=== PATIENT | female | born 1960 | race Caucasian/White ===

== ENCOUNTER 2018-12-16 13:02 | Outpatient (CLI) | payer OTHER, SELFPAY ==
[2018-12-16] VITALS (9 sets, daily range): BP systolic 141–184; BP diastolic 75–95; PULSE 56–67; RESP 16–18; TEMP 36.9; O2SAT 95–100
--- NOTE | 2018-12-16 13:04 | DI.RAD.S_ITS ---
PROCEDURE: PAIN SI JOINT INJECTION INDICATIONS: INTERVERTEBRAL DISC DISPLACEMENT FINDINGS: Fluoroscopic spot filming was performed to verify placement of spinal needles at the right inferior sacroiliac joint level(s), as labeled on the films. Appropriate location(s) of the needle tip(s) was confirmed by injection of iodinated contrast. IMPRESSION: Successful needle tip localization at the right inferior sacroiliac joint for steroid injection. Dictated by: Jong Howe M.D. on 12/16/2018 at 14:47 Approved by: Jong Howe M.D. on 12/16/2018 at 14:48
[2018-12-16] MEDS: MIDAZOLAM 5 MG/5 ML VIAL IV (14:13)
[2018-12-16] MEDS: IOPAMIDOL 15 ML VIAL 3 ML INJ (14:20)
[2018-12-16] MEDS: BUPIVACAINE 0.5% (PF) VIAL 2 ML INJ (14:20)
[2018-12-16] MEDS: BETAMETHASONE 30 MG/5 ML MDV 12 MG INJ (14:21)
--- NOTE | 2018-12-16 14:22 | PC.NURSE ---
ASSISTING PT OFF TABLE AND TRANSPORTING TO POST PROC AREA IN STABLE CONDITION
--- NOTE | 2018-12-16 14:26 | P.PCN_ITS ---
Procedures Date/Time Date of procedure: 12/16/18 Time of procedure: 14:24 General Procedure description: PREOP Dx: Sacroiliac joint pain/DJD POST OP DX: Sacroiliac Joint Pain/DJD Procedures: Fluoroscopic guided contrast controlled right sacroiliac joint injection Physician: Jaime Soler D.O. Indications: Eileen is referred by for treatment of right sacroiliac joint DJD Description of procedure Fluoroscopic guided, contrast controlled right sacroiliac joint injection Following denial of allergies and review of potential side effects and complications, including, but not necessarily limited to, infection, allergic reaction, local tissue breakdown, temporary as well as permanent nerve injury, paralysis, stroke and possible , the patient indicated that they understood and agreed to proceed. An informed consent was signed by the patient , witnessed by a nurse, and placed in the patient's chart. Additionally, other treatment options including modalities, medications, and physical therapy were reviewed with the patient. After review of previous anaesthesic history and IV conscious sedation the patient was deemed safe to proceed with todays procedure with IV conscious sedation as ASA class II designation. Safety time-out was performed to confirm patient ID, procedure to be performed and site of procedure. IV sedation was accomplished with a combination of 3mg of Versed was administered by the RN after DO order, titrated to patient comfort during the course of the procedure while the patient remained responsive to all verbal commands In the prone position following sterile prep and drape of the pelvic region, the hyper lucency on in the inferior aspect of the sacroiliac joint was identified fluoroscopically the skin was anesthetized be a 25 gauge 1 eventual with approximately 2 cc of 1% lidocaine solution. At this point, a 22 gauge 3 in spinal needle was atraumatically introduced and advanced under fluoroscopic guidance into the inferior aspect of the right sacroiliac joint. Following negative aspiration, approximately 0.3 cc of Isovue-300 was injected confirming intra-articular placement without vascular uptake. Radiographic data, including multiple fluoroscopic views of the pelvis, reveals a spinal needle in the sacroiliac joint hyper lucent zone. Subsequent view show flow contrast tear superiorly and inferiorly within the joint capsule without vascular intrathecal uptake. At this point a total of 1cc or 0 8 of 0.5% Marcaine was combined with 1cc of 6 mg of betamethasone was injected without incident. The procedure tolerated the procedure well without signs or symptoms of complications prior to transfer to the recovery area continued monitoring without incident. The patient was then transferred to the recovery area with a bur observed for an appropriate time after the injection. The patient reverted a vas score of 7 prior to the procedure and postprocedure vas of 1. Total fluoroscopy time: 22.7 sec Total conscious sedation time: 24 min Postop instructions The patient was provided with a pain like to continue to record the patient's response to the target specific procedure prior to the patient's follow-up visit with the referring physician. Additionally, specific post injection care instructions and a contact number to our office were provided if concerns arise regarding the possible complications associated with procedure are suspected. Jaime Soler D.O. Complications: none
--- NOTE | 2018-12-16 14:39 | PC.NURSE ---
pt returned from procedure via wheelchair alert and awake, able to move from w/c to chair with standby assist. Resumed monitoring from Lilly CARDONA.
== END 2018-12-16 14:54 ==
PROVIDERS: PCP Internal Medicine; Visit Provider Physical Medicine & Rehabilitation
DX: M53.3 Sacrococcygeal disorders, not elsewhere classified (principal); M51.26 Other intervertebral disc displacement, lumbar region; M48.061 Spinal stenosis, lumbar region without neurogenic claudication; M16.11 Unilateral primary osteoarthritis, right hip; M99.83 Other biomechanical lesions of lumbar region
CPT/HCPCS: 27096; 99152; J0702; J2250

== ENCOUNTER 2019-01-06 21:30 | Emergency (ER) | payer OTHER, SELFPAY ==
[2019-01-06 21:57] VITALS: BP 169/79; PULSE 62; RESP 15; TEMP 36.6; O2SAT 94; BMI 26.5
--- NOTE | 2019-01-06 23:22 | DI.RAD.S_ITS ---
PROCEDURE: XR LUMBAR SPINE 2-3V INDICATIONS: fall pain TECHNIQUE: 3 views of the lumbar spine were acquired. COMPARISON: None. FINDINGS: Bones: No fracture or focal osseous destruction. Trace retrolisthesis of L2 on L3. Diffuse facet arthropathy. Endplate sclerosis and spurring. Moderate narrowing of all the lumbar disc spaces uniformly. Mild dextrocurvature centered at L1 although not entirely visualized. Soft tissues: Overlying bowel gas pattern is normal. No suspicious soft tissue calcifications. IMPRESSION: No fracture. Chronic degenerative changes as above. Dictated by: Kee Peguero M.D. on 01/07/2019 at 7:58 Approved by: Kee Peguero M.D. on 01/07/2019 at 7:59
--- NOTE | 2019-01-06 23:27 | ED.FALL ---
HPI - Fall General Chief Complaint: Fall Stated Complaint: fall, slipped on ice at work Time Seen by Provider: 01/06/19 23:22 Source: patient Mode of arrival: ambulatory Limitations: no limitations History of Present Illness HPI Narrative: Patient is a 58-year-old female who presents with acute back pain after slipping and falling in a parking. She has been able to complete her shift today at work but continues to have some pain. She does have some chronic back pain and has had injections in her SI joint before. She has no numbness or tingling. No head injury MD complaint: fall Onset (ago): hour(s) Fall from: standing Place fall occurred: work Loss of consciousness: none Related Data Home Medications Medication Instructions Recorded Confirmed methocarbamol 750 mg tablet 750 mg PO QID 07/17/18 11/27/18 Previous Rx's Medication Instructions Recorded fexofenadine 180 mg PO QDAYP PRN #90 tab 06/12/17 fluticasone 2 spray INTRANASAL HS #1 inh 11/10/17 ranitidine HCl [Zantac] 150 mg PO BID #60 tab 09/22/18 citalopram 40 mg PO QDAY #180 tab 10/01/18 tramadol 50 mg tablet 50 mg PO TID PRN #60 tab 11/13/18 hydrocodone 5 mg-acetaminophen 300 1 tab PO Q6H PRN #30 tab 11/27/18 mg tablet Allergies Allergy/AdvReac Type Severity Reaction Status Date / Time OSEI Inhibitors Allergy Mild COUGH Verified 01/06/19 21:57 [OSEI INHIBITORS] bacitracin Allergy Unknown Redness of Verified 01/06/19 21:57 [From NEOSPORIN Skin ([id number])] neomycin Allergy Unknown Redness of Verified 01/06/19 21:57 [From NEOSPORIN Skin ([id number])] polymyxin B Allergy Unknown Redness of Verified 01/06/19 21:57 [From NEOSPORIN Skin ([id number])] Calcium Channel Blocking AdvReac Unknown edema Verified 01/06/19 21:57 Agents-Dih [CALCIUM CHANNEL BLOCKING AGENTS-DIH] ANGIOTENSIN II RECEPTOR ANTAG AdvReac Mild MANY Uncoded 12/16/18 13:48 hctz AdvReac Unknown very low Uncoded 12/16/18 13:48 potassium Review of Systems Review of Systems GENERAL: Denies chills,fever HEENT: Denies throat pain RESPIRATORY: Denies dyspnea, cough, wheezing CARDIOVASCULAR: Denies chest pain, palpitations GASTROINTESTINAL: Denies nausea, vomiting MUSCULOSKELETAL: Denies extremity pain, injury SKIN: No rash, no laceration, no pruritus NEUROLOGIC: Denies weakness, dizziness, headache, numbness 8 point review of systems is negative except for those stated above and HPI Exam Initial Vital Signs Initial Vital Signs: Vital Signs Temperature 97.8 F 01/06/19 21:57 Pulse Rate 62 01/06/19 21:57 Respiratory Rate 15 01/06/19 21:57 Blood Pressure 169/79 H 01/06/19 21:57 Pulse Oximetry 94 01/06/19 21:57 GENERAL: alert cooperative well-appearing woman ambulatory in the ED HEENT: Head atraumatic,EOMI, neck is supple CARDIOVASCULAR: Regular rate and rhythm without murmurs, rubs or gallops. RESPIRATORY: Breath sounds equal bilaterally, no wheezes rales or rhonchi. BACK: lumbar of midline tenderness L3-L4, no sign of trauma. no sacral pain EXTREMITIES: Normal range of motion, no clubbing or edema. Neurovascularly intact NEUROLOGICAL: Alert and oriented x4.Normal gait and speech. SKIN: Warm, dry, no laceration, no petechiae, no rashes or lesions. [facility] Social History marital status: unmarried,living together number of children: 0 household members: significant other lives independently: Yes caregiver/support person: No housing: house pets and animals: No education level: other (Associates degree) occupational status: employed (RN) current occupational exposures/hazards: Yes camille/moravian: Zoroastrian leisure activities: sports (Football, Baseball), exercise (Walking, Biking) and other (Outdoor activities, jewelry making) Smoking Status: Former smoker Tobacco: How many years used: 20 Smokeless tobacco user: other (Cigarettes) quit status: quit date established (~2482-6261) second hand exposure: Yes (With partner a few years back.) alcohol intake: current (twice a week.) substance use type: does not use Course Orders Ordered: ED Orders 01/06/19 23:22 XR lumbar spine 2-3V Stat Vital Signs - 8 hr 01/06/19 21:57 01/06/19 23:50 Temperature 97.8 F Pulse Rate 62 76 Respiratory Rate 15 18 Blood Pressure 169/79 H 170/72 H Pulse Oximetry 94 MDM - Fall Imaging Data lumbar x-ray:: Attestation: I personally reviewed and interpreted this imaging study as follows: My impression: No acute fracture MDM Narrative Medical decision making narrative: patient took Motrin about 3:30 p.m.. She is offered Flexeril to help with muscle spasm. She says that she does not respond well to Flexeril. She has some leftover methocarbamol which she says she does better with. Discharge Plan Departure Patient Disposition: Home Clinical Impression: Acute low back pain Qualifiers: Back pain laterality: midline Sciatica presence: without sciatica Qualified Code(s): M54.5 - Low back pain Discharge Date/Time: 01/06/19 23:51 Interventions: ED Discharge Assessment Last Done: 01/06/19 23:50 Instructions: DI for Low Back Pain Activity Restrictions/Additional Instructions: *You have been diagnosed with acute low back pain *What to do: at this time x-ray is negative. If still having pain is in 7-10 days may require repeat x-ray or possibly MRI. Recommend small amount of movement and stretching. *Continue to take medications as directed Motrin 800 mg every 8 hr if needed for pain *Follow up with your primary care provider in 2-3 days *Return to ER if you should have increase, numbness or tingling, worsening pain, lower extremity weakness or any new, worsening or concerning symptoms Prescriptions: No Action fexofenadine 180 MG tablet 180 mg PO QDAYP PRNQty: 90 RF: 3 fluticasone 16 GM spray,suspension 2 spray Intranasal HS Qty: 1 RF: 3 ranitidine HCl [Zantac] 150 mg tablet 150 mg PO BID Qty: 60 RF: 3 citalopram 20 mg tablet 40 mg PO QDAY Qty: 180 RF: 3 tramadol 50 mg tablet 50 mg PO TID PRN (Reason: pain) Qty: 60 RF: 1 methocarbamol 750 mg tablet 750 mg PO QID RF: 0 hydrocodone-acetaminophen [Vicodin] 5-300 mg tablet 1 tab PO Q6H PRN (Reason: pain) Qty: 30 RF: 0 Referrals: Salvador Schmidt MD [Primary Care Provider] -
--- NOTE | 2019-01-06 23:45 | ED_ITS ---
HPI - Fall General Chief Complaint: Fall Stated Complaint: fall, slipped on ice at work Time Seen by Provider: 01/06/19 23:22 Source: patient Mode of arrival: ambulatory Limitations: no limitations History of Present Illness HPI Narrative: Patient is a 58-year-old female who presents with acute back pain after slipping and falling in a parking. She has been able to complete her shift today at work but continues to have some pain. She does have some chronic back pain and has had injections in her SI joint before. She has no numbness or tingling. No head injury MD complaint: fall Onset (ago): hour(s) Fall from: standing Place fall occurred: work Loss of consciousness: none Related Data Home Medications Medication Instructions Recorded Confirmed methocarbamol 750 mg tablet 750 mg PO QID 07/17/18 11/27/18 Previous Rx's Medication Instructions Recorded fexofenadine 180 mg PO QDAYP PRN #90 tab 06/12/17 fluticasone 2 spray INTRANASAL HS #1 inh 11/10/17 ranitidine HCl [Zantac] 150 mg PO BID #60 tab 09/22/18 citalopram 40 mg PO QDAY #180 tab 10/01/18 tramadol 50 mg tablet 50 mg PO TID PRN #60 tab 11/13/18 hydrocodone 5 mg-acetaminophen 300 1 tab PO Q6H PRN #30 tab 11/27/18 mg tablet Allergies Allergy/AdvReac Type Severity Reaction Status Date / Time OSEI Inhibitors Allergy Mild COUGH Verified 01/06/19 21:57 [OSEI INHIBITORS] bacitracin Allergy Unknown Redness of Verified 01/06/19 21:57 [From NEOSPORIN Skin ([id number])] neomycin Allergy Unknown Redness of Verified 01/06/19 21:57 [From NEOSPORIN Skin ([id number])] polymyxin B Allergy Unknown Redness of Verified 01/06/19 21:57 [From NEOSPORIN Skin ([id number])] Calcium Channel Blocking AdvReac Unknown edema Verified 01/06/19 21:57 Agents-Dih [CALCIUM CHANNEL BLOCKING AGENTS-DIH] ANGIOTENSIN II RECEPTOR ANTAG AdvReac Mild MANY Uncoded 12/16/18 13:48 hctz AdvReac Unknown very low Uncoded 12/16/18 13:48 potassium Review of Systems Review of Systems GENERAL: Denies chills,fever HEENT: Denies throat pain RESPIRATORY: Denies dyspnea, cough, wheezing CARDIOVASCULAR: Denies chest pain, palpitations GASTROINTESTINAL: Denies nausea, vomiting MUSCULOSKELETAL: Denies extremity pain, injury SKIN: No rash, no laceration, no pruritus NEUROLOGIC: Denies weakness, dizziness, headache, numbness 8 point review of systems is negative except for those stated above and HPI Exam Initial Vital Signs Initial Vital Signs: Vital Signs Temperature 97.8 F 01/06/19 21:57 Pulse Rate 62 01/06/19 21:57 Respiratory Rate 15 01/06/19 21:57 Blood Pressure 169/79 H 01/06/19 21:57 Pulse Oximetry 94 01/06/19 21:57 GENERAL: alert cooperative well-appearing woman ambulatory in the ED HEENT: Head atraumatic,EOMI, neck is supple CARDIOVASCULAR: Regular rate and rhythm without murmurs, rubs or gallops. RESPIRATORY: Breath sounds equal bilaterally, no wheezes rales or rhonchi. BACK: lumbar of midline tenderness L3-L4, no sign of trauma. no sacral pain EXTREMITIES: Normal range of motion, no clubbing or edema. Neurovascularly intact NEUROLOGICAL: Alert and oriented x4.Normal gait and speech. SKIN: Warm, dry, no laceration, no petechiae, no rashes or lesions. [facility] Social History marital status: unmarried,living together number of children: 0 household members: significant other lives independently: Yes caregiver/support person: No housing: house pets and animals: No education level: other (Associates degree) occupational status: employed (RN) current occupational exposures/hazards: Yes camille/taoism: Orthodox leisure activities: sports (Football, Baseball), exercise (Walking, Biking) and other (Outdoor activities, jewelry making) Smoking Status: Former smoker Tobacco: How many years used: 20 Smokeless tobacco user: other (Cigarettes) quit status: quit date established (~[id number]) second hand exposure: Yes (With partner a few years back.) alcohol intake: current (twice a week.) substance use type: does not use Course Orders Ordered: ED Orders 01/06/19 23:22 XR lumbar spine 2-3V Stat Vital Signs - 8 hr 01/06/19 21:57 01/06/19 23:50 Temperature 97.8 F Pulse Rate 62 76 Respiratory Rate 15 18 Blood Pressure 169/79 H 170/72 H Pulse Oximetry 94 MDM - Fall Imaging Data lumbar x-ray:: Attestation: I personally reviewed and interpreted this imaging study as follows: My impression: No acute fracture MDM Narrative Medical decision making narrative: patient took Motrin about 3:30 p.m.. She is offered Flexeril to help with muscle spasm. She says that she does not respond well to Flexeril. She has some leftover methocarbamol which she says she does better with. Discharge Plan Departure Patient Disposition: Home Clinical Impression: Acute low back pain Qualifiers: Back pain laterality: midline Sciatica presence: without sciatica Qualified Co de(s): M54.5 - Low back pain Discharge Date/Time: 01/06/19 23:51 Interventions: ED Discharge Assessment Last Done: 01/06/19 23:50 Instructions: DI for Low Back Pain Activity Restrictions/Additional Instructions: *You have been diagnosed with acute low back pain *What to do: at this time x-ray is negative. If still having pain is in 7-10 days may require repeat x-ray or possibly MRI. Recommend small amount of movement and stretching. *Continue to take medications as directed Motrin 800 mg every 8 hr if needed for pain *Follow up with your primary care provider in 2-3 days *Return to ER if you should have increase, numbness or tingling, worsening pain, lower extremity weakness or any new, worsening or concerning symptoms Prescriptions: No Action fexofenadine 180 MG tablet 180 mg PO QDAYP PRNQty: 90 RF: 3 fluticasone 16 GM spray,suspension 2 spray Intranasal HS Qty: 1 RF: 3 ranitidine HCl [Zantac] 150 mg tablet 150 mg PO BID Qty: 60 RF: 3 citalopram 20 mg tablet 40 mg PO QDAY Qty: 180 RF: 3 tramadol 50 mg tablet 50 mg PO TID PRN (Reason: pain) Qty: 60 RF: 1 methocarbamol 750 mg tablet 750 mg PO QID RF: 0 hydrocodone-acetaminophen [Vicodin] 5-300 mg tablet 1 tab PO Q6H PRN (Reason: pain) Qty: 30 RF: 0 Referrals: Salvador Schmidt MD [Primary Care Provider] -
[2019-01-06 23:50] VITALS: BP 170/72; PULSE 76; RESP 18
== END 2019-01-06 23:51 | disposition home or self-care (01) ==
PROVIDERS: Emergency Provider Emergency Medicine; PCP Internal Medicine
DX: M54.5 Low back pain (principal); W01.0XXA Fall on same level from slipping, tripping and stumbling without subsequent striking against object, initial encounter; Y99.0 Civilian activity done for income or pay
CPT/HCPCS: 72100; 99282; 99283

== ENCOUNTER → 2019-05-24 11:46 | Outpatient (CLI) | payer OTHER, SELFPAY ==
--- NOTE | 2019-05-24 11:48 | DI.RAD.S_ITS ---
PROCEDURE: XR HIP W PEL IF DONE LT MIN 4V INDICATIONS: right hip pain TECHNIQUE: AP pelvis with lateral view(s) of the left and right hip(s). COMPARISON: [facility], CR, XR LUMBAR SPINE WITH OBLIQUES, 10/23/2017, 7:59. FINDINGS: Bones: No fractures or dislocations. Pelvic ring appears intact. No suspicious bony lesions. Severe right hip joint degeneration. Moderate left hip osteoarthritis. Lower lumbar spondylosis. Soft tissues: The visualized bowel gas pattern is normal. No suspicious soft tissue calcifications. IMPRESSION: Severe right and moderate left hip joint degeneration, progressed since 10/23/17. Dictated by: Kee Peguero M.D. on 05/24/2019 at 13:24 Approved by: Kee Peguero M.D. on 05/24/2019 at 16:33
== END ==
PROVIDERS: PCP Internal Medicine; Visit Provider Registered Nurse
DX: M16.0 Bilateral primary osteoarthritis of hip (principal)
CPT/HCPCS: 73522

== ENCOUNTER → 2019-07-22 13:16 | Outpatient (CLI) | payer OTHER, SELFPAY ==
--- NOTE | 2019-07-22 13:19 | DI.MRI.S_ITS ---
PROCEDURE: MR LUMBAR SPINE WO CON INDICATIONS: Lower back pain TECHNIQUE: Noncontrast sagittal T1 spin echo and T2 fast echo, sagittal STIR, axial T1 and T2 fast spin echo through the lumbar spine. In cases with scoliosis, additional coronal T2 fast spin echo may be performed. COMPARISON: [facility], MR, MR LUMBAR SPINE WITHOUT CONTRAST, 10/28/2017, 9:38. [facility], CR, XR LUMBAR SPINE 2-3V, 01/06/2019, 23:25. FINDINGS: Image quality: Excellent. Alignment and Curvature: There is trace retrolisthesis of L1 on L2, L2 on L3, L3 on L4, L4 on L5. Bone Marrow: Marrow is of normal overall signal. Moderate ventral changes are present at L2-3, L4-5 and minimal throughout the remainder of the lumbar spine. Schmorl's node with minimal reactive endplate changes and one in the inferior endplate of L2 superior endplate of L3. No acute vertebral body compression fractures. Spinal Cord: Conus medullaris terminates at the L1-L2 level. Visualized cord demonstrates normal signal and size. Paraspinous Soft Tissues: No paravertebral masses. Discs: Moderate desiccation is present throughout the lumbar spine. L1-L2: Minimal disc bulge without spinal stenosis or foraminal narrowing. No interval change. Facet and ligamentum flavum hypertrophy are present. L2-L3: Mild disc bulge with mild spinal stenosis. Mild to moderate bilateral foraminal narrowing with facet and ligamentum flavum hypertrophy. No interval change. L3-L4: Mild disc bulge with mild spinal stenosis. Moderate to severe left and moderate right foraminal narrowing, minimally progressive compared to prior exam. Facet and ligamentum flavum hypertrophy are present. L4-L5: Mild disc bulge including a right lateral/foraminal component was likely compromise of the right lateral recess. There is severe right and mild left foraminal narrowing with facet and ligamentum flavum hypertrophy. No interval change. Mild to moderate spinal stenosis. L5-S1: Mild disc bulge with slight left foraminal component. No spinal stenosis. Mild bilateral foraminal narrowing with facet and ligament flavum hypertrophy. No interval change. IMPRESSION: 1. Multilevel degenerative changes with air is interval progression as above. 2. Multilevel spinal stenosis most notable secondary to disc bulge with contributing factor of facet/ligament flavum arthropathy. 3. Multilevel foraminal narrowing most severe at L4-5 secondary to facet arthropathy. Dictated by: Noelle Neumann M.D. on 07/22/2019 at 18:04 Approved by: Noelle Neumann M.D. on 07/22/2019 at 18:10
== END ==
PROVIDERS: PCP Internal Medicine; Visit Provider Registered Nurse
DX: M99.83 Other biomechanical lesions of lumbar region (principal); M51.26 Other intervertebral disc displacement, lumbar region
CPT/HCPCS: 72148

== ENCOUNTER 2019-08-03 14:00 | Outpatient (CLI) | payer OTHER, SELFPAY ==
--- NOTE | 2019-08-03 14:03 | DI.RAD.S_ITS ---
PROCEDURE: PAIN L/S TRANSFORAMINAL INJECT INDICATIONS: SPINAL STENOSIS FINDINGS: Fluoroscopic spot filming was performed to verify placement of spinal needles at the L4-L5 level(s), as labeled on the films. Appropriate location(s) of the needle tip(s) was confirmed by injection of iodinated contrast. Dictated by: Kee Peguero M.D. on 08/03/2019 at 16:52 Approved by: Kee Peguero M.D. on 08/03/2019 at 16:52
[2019-08-03 14:07] VITALS: BP 157/84; PULSE 69; RESP 16; TEMP 36.5; O2SAT 98
[2019-08-03 15:06] VITALS: BP 182/75; PULSE 58; RESP 16; O2SAT 98
[2019-08-03] MEDS: MIDAZOLAM 5 MG/5 ML VIAL IV (15:08)
[2019-08-03] MEDS: fentaNYL 100 MCG/2 ML INJ 50 MCG IV (15:08)
[2019-08-03 15:11] VITALS: BP 143/72; PULSE 57; RESP 16; O2SAT 96
[2019-08-03] MEDS: BETAMETHASONE 30 MG/5 ML MDV 6 MG INJ (15:14)
[2019-08-03] MEDS: IOPAMIDOL 15 ML VIAL 3 ML INJ (15:14)
[2019-08-03] MEDS: DEXAMETHASONE 10 MG/ML VIAL 20 MG INJ (15:14)
[2019-08-03] MEDS: BUPIVACAINE 0.25% (PF) VIAL 2 ML INJ (15:14)
[2019-08-03 15:16] VITALS: BP 148/72; PULSE 54; RESP 16; O2SAT 96
--- NOTE | 2019-08-03 15:19 | PC.NURSE ---
ASSISTING PT OFF TABLE AND TRANSPORTING TO POST PROC AREA IN STABLE CONDITION. TURNING PT CARE OVER TO DULCE SHINE.
--- NOTE | 2019-08-03 15:27 | P.PCN_ITS ---
Procedures Date/Time Date of procedure: 08/03/19 Time of procedure: 15:27 General Procedure description: PREOP DIAGNOSIS 1. FORMAINAL STENOSIS WITH LE SYMPTOMS POST OP DIAGNOSIS 1. FORMAINAL STENOSIS WITH LE SYMPTOMS PROCEDURES 1. FLUOROSCOPICALLY GUIDED CONTRAST CONTROLLED TRANSFORAMINAL EPIDURAL STEROID INJECTION - RIGHT L4/5 TFESI PHYSICIAN: Jaime Soler DO INDICATIONS: Eileen is referred by Dr. Schmidt for treatment of Foraminal Stenosis with Right LE Symptoms FINDINGS Foraminal Nerve Root Compression secondary to disc disease and facet hypertrophy DESCRIPTION OF PROCEDURE: Following review of allergy and review of potential side effects and complications, including, but not necessarily limited to, infection, allergic reaction, local tissue breakdown, stroke, temporary or permanent nerve injury, paralysis, and possible , the patient indicated that the patient understood and agreed to proceed. An informed consent document was signed by the patient, witnessed by a nurse, and placed in the patient's chart. Additionally, other treatment options including medications, modalities, and physical therapy were reviewed with the patient. After review of previous anaesthesic history and IV conscious sedation the patient was deemed safe to proceed with todays procedure with IV conscious sedation as ASA class II designation. Safety time-out was performed to confirm patient ID, procedure to be performed and site of procedure. IV sedation was accomplished with a combination of 3mg of Versed and 50mcg of Fentanyl was administered by the RN after DO order, titrated to patient comfort during the course of the procedure while the patient remained responsive to all verbal commands In the prone position following sterile prep and drape of the lumbar region, the Right L4/5 posterior neuroforamen was identified fluoroscopically. The skin was anesthetized via a 25-gauge 1.5-inch needle with 1% lidocaine solution. At this point, a 25-gauge 3.5-inch spinal needle was atraumatically introduced and adv anced under fluoroscopic guidance through the posterior Right L4/5 neuroforamen to approximately the anterior aspect of the canal. Depth was confirmed on lateral view. Following negative aspiration, injection of approximately 1.5 cc of Isovue 200 under live fluoroscopy in the AP view confirmed excellent flow along the nerve root, into the epidural space without vascular or intrathecal uptake observed Radiological data, including multiple fluoroscopic views of the lumbosacral spine, reveal a spinal needle at the right L4/5 posterior neuroforamen. Subsequent views show flow of contrast material flowing superiorly and inferiorly along the nerve root confirming epidural flow. Subsequently, a test dose of 1.5 cc of 1% lidocaine solution was administered and patient was observed for two minutes for signs or symptoms of complications, including abdominal pain, shortness of breath, bilateral upper or lower extremity weakness, nausea and vomiting, prior to steroid injection. At this p oint, a total of 3cc or 20mg of dexamethasone and 6mg of betamethasone was injected without incident. The procedure tolerated the procedure well without signs or symptoms of complications prior to transfer to the recovery area continued monitoring without incident.The patient was then transferred to the recovery area where they were observed for an appropriate time after the injection. The patient reported a VAS score of 7 prior to the procedure and a post- procedure VAS of 0. Total Fluoroscopy Time: 20.9 seconds Total Conscious Sedation Time: 24min POST OP INSTRUCTIONS The patient was provided a Pain Log to continue to record their response to the target-specific procedure prior to follow-up visit with their referring physician. Additionally, specific post-injection care instructions and a contact number to our office were provided if concerns arise regarding possible complications associated with the procedure are suspected. Jaime Soler, Complications: none
[2019-08-03 15:30] VITALS: BP 148/97; PULSE 58; RESP 17; O2SAT 97
[2019-08-03 15:33] VITALS: BP 154/94; PULSE 60; RESP 16; O2SAT 97
--- NOTE | 2019-08-03 15:54 | PC.NURSE ---
P115: Patient discharged home with spouse via private vehicle. VSS. Discussed importance of s/sx of complications and F/U with Dr. Soler. Verbalized understanding of instructions.
== END 2019-08-03 15:51 | disposition home or self-care (01) ==
PROVIDERS: PCP Internal Medicine; Visit Provider Physical Medicine & Rehabilitation
DX: M48.061 Spinal stenosis, lumbar region without neurogenic claudication (principal); M51.16 Intervertebral disc disorders with radiculopathy, lumbar region
CPT/HCPCS: 64483; 99152; J0702; J1100; J2250; J3010

== ENCOUNTER → 2019-09-03 15:30 | Outpatient (CLI) | payer OTHER, SELFPAY ==
[2019-09-03 16:48] LABS: Alanine Aminotransferase 15 IU/L (9-52); Albumin 4.5 g/dL (3.5-5.0); Albumin Globulin Ratio 1.6 (1.0-2.8); Alkaline Phosphatase 90 U/L (38-126); Aspartate Aminotransferase 20 IU/L (14-36); BUN Creatinine Ratio 23.3 (6-22); Bilirubin Total 0.3 mg/dL (0.2-1.3); Blood Urea Nitrogen 14 mg/dL (7-17); Calcium 9.7 mg/dL (8.4-10.2); Carbon Dioxide 27 mmol/L (22-32); Chloride 101 mmol/L (98-107); Creatine Kinase 66 U/L (30-135); Estimated Glomerular Filt Rate > 60.0 mL/min (>60); Globulin 2.8 g/dL (1.7-4.1); Glucose 121 mg/dL (80-110); HEMOLYSIS < 15 (0-50); Potassium 3.8 mmol/L (3.4-5.1); Sodium 138 mmol/L (137-145); Total Protein 7.3 g/dL (6.3-8.2)
[2019-09-03 17:19] LABS: TSH w/ Reflex to FT4 1.49 uIU/mL (0.47-4.68)
== END ==
PROVIDERS: PCP Internal Medicine; Visit Provider Internal Medicine
DX: I49.3 Ventricular premature depolarization (principal); M79.10 Myalgia, unspecified site; M99.83 Other biomechanical lesions of lumbar region
CPT/HCPCS: 36415; 80053; 82550; 84443

== ENCOUNTER 2019-09-07 11:08 | Outpatient (CLI) | payer OTHER, SELFPAY ==
[2019-09-07] VITALS (8 sets, daily range): BP systolic 144–172; BP diastolic 77–96; PULSE 55–70; RESP 16–20; TEMP 36.3; O2SAT 96–98
--- NOTE | 2019-09-07 11:12 | DI.RAD.S_ITS ---
PROCEDURE: PAIN L/S TRANSFORAMINAL INJECT INDICATIONS: BIOMECHANICAL LESIONS OF LUMBAR SPINE FINDINGS: Fluoroscopic spot filming was performed to verify placement of spinal needles at the left L3-L4 level(s), as labeled on the films. Appropriate location(s) of the needle tip(s) was confirmed by injection of iodinated contrast. IMPRESSION: Successful left-sided L3-L4 needle tip localization for transforaminal steroid injection. Dictated by: Jong Howe M.D. on 09/07/2019 at 13:41 Approved by: Jong Hoew M.D. on 09/07/2019 at 13:42
[2019-09-07] MEDS: fentaNYL 100 MCG/2 ML INJ 50 MCG IV (11:56)
[2019-09-07] MEDS: MIDAZOLAM 5 MG/5 ML VIAL IV (11:56)
[2019-09-07] MEDS: IOPAMIDOL 15 ML VIAL 3 ML INJ (12:01)
[2019-09-07] MEDS: DEXAMETHASONE 10 MG/ML VIAL 20 MG INJ (12:01)
[2019-09-07] MEDS: BUPIVACAINE 0.25% (PF) VIAL 2 ML INJ (12:01)
[2019-09-07] MEDS: BETAMETHASONE 30 MG/5 ML MDV 6 MG INJ (12:01)
--- NOTE | 2019-09-07 12:04 | PC.NURSE ---
ASSISTING PT OFF TABLE AND TRANSPORTING TO POST PROC AREA IN STABLE CONDITION. PASSING RN CARE OF PT OFF TO ALEAH Kang RN.
--- NOTE | 2019-09-07 12:10 | P.PCN_ITS ---
Procedures Date/Time Date of procedure: 09/07/19 Time of procedure: 12:10 General Procedure description: PROVIDER: Jaime Soler DO Operative Note PREOP DIAGNOSIS 1. FORAMINAL STENOSIS WITH LE SYMPTOMS, POST OP DIAGNOSIS 1. FORAMINAL STENOSIS WITH LE SYMPTOMS, PROCEDURES 1. FLUOROSCOPICALLY GUIDED CONTRAST CONTROLLED TRANSFORAMINAL EPIDURAL STEROID INJECTION - LEFT L3/4 TFESI SURGEON: Jaime Soler DO INDICATIONS Eileen is referred by Dr. Schmidt for treatment of Foraminal Stenosis with left LE Symptoms FINDINGS Foraminal Nerve Root Compression secondary to disc disease and facet hypertrophy DESCRIPTION OF PROCEDURE Following review of allergy and review of potential side effects and complications, including, but not necessarily limited to, infection, allergic reaction, local tissue breakdown, stroke, temporary or permanent nerve injury, paralysis, and possible , the patient indicated that the patient understood and agreed to proceed. An informed consent document was signed by the patient, witnessed by a nurse, and placed in the patient's chart. Additionally, other treatment options including medications, modalities, and physical therapy were reviewed with the patient. After review of previous anaesthesic history and IV conscious sedation the patient was deemed safe to proceed with todays procedure with IV conscious sedation as ASA class II designation. Safety time-out was performed to confirm patient ID, procedure to be performed and site of procedure. IV sedation was accomplished with a combination of 2mg of Versed and 50mcg of Fentanyl was administered by the RN after DO order, titrated to patient comfort during the course of the procedure while the patient remained responsive to all verbal commands In the prone position following sterile prep and drape of the lumbar region, the left L3/4 posterior neuroforamen was identified fluoroscopically. The skin was anesthetized via a 25-gauge 1.5-inch needle with 1% lidocaine solution. At this point, a 25-gauge 3.5-inch spinal needle was atraumatically introduced and advanced under fluoroscopic guidance through the posterior left L3/4 neuroforamen to approximately the anterior aspect of the canal. Depth was confirmed on lateral view. Following negative aspiration, injection of approximately 1.5 cc of Isovue 200 under live fluoroscopy in the AP view confirmed excellent flow along the nerve root, into the epidural space without vascular or intrathecal uptake observed Radiological data, including multiple fluoroscopic views of the lumbosacral spine, reveal a spinal needle at the left L3/4 posterior neuroforamen. Subsequ ent views show flow of contrast material flowing superiorly and inferiorly along the nerve root confirming epidural flow. Subsequently, a test dose of 1.5 cc of 1% lidocaine solution was administered and patient was observed for two minutes for signs or symptoms of complications, including abdominal pain, shortness of breath, bilateral upper or lower extremity weakness, nausea and vomiting, prior to steroid injection. At this point, a total of 3cc or 20mg of dexamethasone and 6mg betamethasone was injected without incident. The patient tolerated the procedure well without signs or symptoms of complications prior to transfer to the recovery area continued monitoring without incident. The patient was then transferred to the recovery area where they were observed for an appropriate time after the injection. The patient reported a VAS score of 7 prior to the procedure and a post-procedure VAS of 0. Total Fluoroscopy Time: 24.2 seconds Total Conscious Sedation Time: 24min POST OP INSTRUCTIONS The patient was provided a Pain Log to continue to record their response to the target-specific procedure prior to follow-up visit with their referring physician. Additionally, specific post-injection care instructions and a contact number to our office were provided if concerns arise regarding possible complications associated with the procedure are suspected. Jaime Soler, Complications: none
--- NOTE | 2019-09-07 12:39 | PC.NURSE ---
Discharge note: patient arrived for post procedure monitoring at 1210. VSS, O2 Sat WNL on RA. No complaints of pain. Pain level 0/10 up to discharge. Discharge instructions reviewed with patient with good understanding. Tolerating po without nausea. Discharged to home. wheelchair to car. Denies any unusual numbness or tingling to lower extremities.
== END 2019-09-07 12:35 ==
LOC: RAD 11:11
PROVIDERS: PCP Internal Medicine; Visit Provider Physical Medicine & Rehabilitation
DX: M48.061 Spinal stenosis, lumbar region without neurogenic claudication (principal); M51.16 Intervertebral disc disorders with radiculopathy, lumbar region
CPT/HCPCS: 64483; 99152; J0702; J1100; J2250; J3010

== ENCOUNTER → 2019-09-30 13:30 | Outpatient (CLI) | payer OTHER, SELFPAY ==
[2019-09-30 14:01] LABS: Add Manual Diff / Slide Review NO; Basophils Absolute Auto 0 /uL (0-100); Basophils Percent Auto 0.6 % (0-2); Eosinophils Absolute Auto 100 /uL (0-450); Eosinophils Percent Auto 1.7 % (2-4); Hematocrit 38.2 % (36-46); Hemoglobin 13.3 g/dL (12.0-16.0); Lymphocytes Absolute Auto 1800 /uL (1100-4500); Lymphocytes Percent Auto 29.7 % (25-40); Mean Corpuscular HGB Conc 34.7 % (30-36); Mean Corpuscular Hemoglobin 32.8 PG (26-34); Mean Corpuscular Volume 94.5 fL (80-100); Monocytes Absolute Auto 400 /uL (0-900); Monocytes Percent Auto 6.1 % (3-14); Neutrophils Absolute Auto 3800 /uL (1500-7000); Neutrophils Percent Auto 61.9 % (50-75); Platelet Count 264 X10^3/uL (150-400); Red Blood Cell Count 4.05 X10^6/uL (4.0-5.2); Red Cell Distribution Width 12.7 % (11.6-14.8); White Blood Cell Count 6.1 X10^3/uL (4.5-11.0)
[2019-09-30 14:33] LABS: Carbon Dioxide 29 mmol/L (22-32); Chloride 100 mmol/L (98-107); HEMOLYSIS 23 (0-50); Potassium 3.5 mmol/L (3.4-5.1); Sodium 138 mmol/L (137-145)
== END ==
PROVIDERS: Visit Provider Orthopaedic Surgery
DX: M16.10 Unilateral primary osteoarthritis, unspecified hip (principal); Z01.818 Encounter for other preprocedural examination; Z01.812 Encounter for preprocedural laboratory examination
CPT/HCPCS: 36415; 80051; 85025; 93005; 93010

== ENCOUNTER 2019-10-25 05:55 | Inpatient (IN) | payer OTHER, SELFPAY ==
[2019-10-05 10:32] VITALS: BMI 26.1
[2019-10-25] VITALS (21 sets, daily range): BP systolic 76–151; BP diastolic 43–98; PULSE 57–84; RESP 12–20; TEMP 35.8–36.8; O2SAT 92–99; BMI 27.1
--- NOTE | 2019-10-25 | DI.RAD.S_ITS ---
PROCEDURE: XR PELVIS 1-2V INDICATIONS: POSTERIOR HIP ARTHROPLASTY POST OP TECHNIQUE: 1 view of the lower pelvis acquired. COMPARISON: [facility], CR, XR HIP W PEL IF DONE BRANDY 3TO4V, 05/24/2019, 11:57. [facility], CR, XR PELVIS WITH LATERAL HIP RIGHT, 09/30/2019, 15:25. FINDINGS: Bones: Patient is status post right hip arthroplasty, with hardware components in expected positions. The hip joint appears congruent. The visualized bony structures appear intact. Note is made of [id number] left hip joint degeneration. Soft tissues: Overlying postoperative changes are noted. No suspicious soft tissue densities. IMPRESSION: Right hip prosthesis in anatomic alignment. Dictated by: Chantale George M.D. on 10/25/2019 at 10:29 Approved by: Chantale George M.D. on 10/25/2019 at 10:30
[2019-10-25] MEDS: LACTATED RINGERS 1,000 ML 42 ML IV (07:41)
--- NOTE | 2019-10-25 07:53 | PM.PREOP ---
Pre-operative Note Interval Note History & Physical reviewed/Exam performed by Physician: Yes Changes to H&P: No
[2019-10-25] MEDS: CEFAZOLIN 2 GM/100 ML FROZ.PIGGY IV ×3 (07:56→23:36)
[2019-10-25] MEDS: TRANEXAMIC ACID 1,000 MG VIAL 2000 MG INJ ×2 (08:30→09:12)
[2019-10-25] MEDS: KETOROLAC 30 MG/ML VIAL IM (08:45)
[2019-10-25] MEDS: MORPHINE 4 MG/ML INJ IM (08:45)
[2019-10-25] MEDS: ROPIVACAINE 0.5% PF 5 MG/ML 20ML VIAL 60 ML INJ (08:45)
--- NOTE | 2019-10-25 08:48 | SUR.OPER ---
Lateral on padded OR bed. Gel axillary roll. Arms secured on padded armboard with pillow supporting top arm. Padded hip positioner braces x4 - anterior and posterior chest and pelvis. Additional gel pad used anterior pelvis. Gel pad under bottom leg from knee to foot and secured with tape over sheet.
[2019-10-25] MEDS: ACETAMINOPHEN IV 1,000 MG/100 ML VIAL 400 MG IV (09:11)
--- NOTE | 2019-10-25 09:31 | P.OP_ITS ---
Operative Date/Time/Diagnoses Date of procedure: 10/25/19 Time of procedure: 09:31 Pre-op diagnosis: Right hip degenerative joint disease Post-op diagnosis: same Procedure & Clinicians Procedure: Right total hip arthroplasty (CPT code 40849 with clinical assistant professor) Same procedure as scheduled: Yes Indications: Patient is an 59-year-old female with severe right hip DJD. The patient has pain with activities and at rest, limited ambulation and activity tolerance, difficulties with ADLs, and failure of conservative treatment. We have discussed the nature of condition, treatment options, risks and benefits, and patient elects to proceed with total hip arthroplasty and gives informed consent. Surgeon: Zen [employer] Counter Manager: Higinio Arceo Anesthesia Type: General and Spinal Operative Notes Closure Type: primary Specimen(s): none sent Prosthetic devices, grafts, tissues, transplants, or devices: Acetabulum: Lam and Nephew R3 acetabular component size 52 mm Femoral component: Lam and Nephew Anthology stem size 8 with standard offset Femoral head: 36 mm + 0 Oxinium Estimated Blood Loss (mL): 100 Blood products transfused: none Procedure in detail: After satisfaction induction of anesthetic, and administration of IV antibiotics, the patient was positioned in the lateral decubitus position with all bony prominences well padded and pelvic position secured using a hip stake setter positioning device. Right hip and lower extremity prepped and draped in the usual sterile fashion, 1st dose of intravenous tranexamic acid was administered, then a longitudinal incision was created centered over the greater trochanter and carried sharply through the skin and subcutaneous tissues down to the fascia gely which was divided longitudinally and retracted with a Charnley retractor. External rotators visualize, cut, tagged, and retracted posteriorly, then the capsule was cut in a T-type fashion with the corners tagged and retracted. Hip was dislocated and femoral neck cut made according to preoperative templating. Acetabular retractors then placed, and the acetabular labrum and osteophytes were excised. The acetabulum was then sequentially reamed to 51 mm with an excellent circumferential ream and fit with the trial. The trial component was removed and a permanent size 52 mm Lam and Nephew R3 acetabular component was selected, positioned, and impacted with satisfactory position and fixation achieved. Permanent liner was then inserted with the elevated lip directed posteriorly. Soft tissue then removed off the lateral femoral neck in the lateral neck was entered using a box osteotome. T- handled reamers placed down the canal followed by sequential broaching to 8 with the final broach left in place for trial reduction which demonstrated excellent leg length, range of motion, and stability characteristics with a 36 mm +0 trial ball. The trial and broach were removed, and a permanent size 8 Lam and Nephew Anthology stem was selected and inserted with excellent position and fixation achieved. Another trial reduction yielded the above characteristics so the trial ball was exchanged for a permanent 36 mm +0 Oxinium ball. The hip was irrigated and reduced and excellent leg length range of motion and stability characteristics were achieved and maintained. Periarticular tissues were infiltrated with ropivacaine, Toradol, and morphine. The hip was copiously irrigated, and the capsule repaired with #2 Ethibond, and the piriformis was repaired back to the greater trochanter with the same. Fascia gely closed with interrupted #1 Ethibond sutures, and the subcutaneous tissues were closed in 2 layers of 0 Vicryl and 2 0 Vicryl. Skin was closed with andrew and sterile dressings applied. Second dose of tranexamic acid was administered intravenously, and the anesthetic was terminated. Complications: none Post-operative Condition: stable Disposition: PACU Plan for aftercare: Patient will be admitted to the acute care [facility], and anticipate discharge today or on postop day 1 with follow-up in office in 10-14 days. Outpatient physical therapy will be arranged and patient will continue to observe posterior hip precautions. Patient will continue use of postoperative Lovenox for 10 days postop.
--- NOTE | 2019-10-25 10:24 | SUR.PHASEI ---
Pt A/O x 4. Ellis's x 4. Tolerating po. Denies pain/nausea.
--- NOTE | 2019-10-25 11:03 | PC.NURSE ---
Addendum entered by Radha Ochoa R.N. 10/25/19 15:01: KWESI Arceo, notified of patients BP, orders received, bolus started. Addendum entered by Radha Ochoa R.N. 10/25/19 14:33: Notified by physical therapist that patients BP went from 138/81 supine to 76/51 while sitting at edge of the bed. Pt became, nauseated,diaphoretic and light headed. Assisted back to supine position by therapist. Denies need for pain meds at this time. Original Note: Patient alert, oriented denies pain to right hip at this time, PPP, able to move foot, although patient feels like she is unable to. Bulky dressing to right hip CDI, denies nausea.
--- NOTE | 2019-10-25 14:16 | PT-IP ANOTE ---
PT orders received. Contacted pt and conducted subjective interview with significant other in room for support. Reviewed posterior precautions and post-op exercises. Initiated mobility assessment, but pt's BP dropped from 138/81 supine to 76/51 sitting EOB. Pt reported nausea, severe lightheadedness, change in vision and her skin became clammy. Pt assisted with return to supine with cool washcloth applied as BP recovered to 100/43 and patient reported abating symptoms. Notified RN. Pt repositioned in bed with bed alarm armed for safety. Will attempt to contact pt late this afternoon to check for appropriateness of mobility assessment.
[2019-10-25] MEDS: SODIUM CHLORIDE 0.9% 500 ML IV (14:48)
[2019-10-25] MEDS: OXYCODONE IR 5 MG TABLET PO (15:55)
--- NOTE | 2019-10-25 16:56 | PT.IIE ---
Current Diagnoses Unilateral primary osteoarthritis, right hip (10/25/19) Wedge compression fracture of third lumbar vertebra, sequela (10/25/19) Surgery Performed Operation Date: 10/25/19 07:45 Actual Procedures p Total Hip Arthroplasty(Right) - Zen Katz MD Surgical History (Last Updated 10/05/19 @ 11:16 by Emmy Mcgee, RN) Hx of breast augmentation (Acute ~1987) Hx of dilation and curettage (Acute ~1978) Medical History (Last Updated 10/05/19 @ 11:12 by Emmy Mcgee RN) Abscess (Acute ~1993) Gastroesophageal reflux disease without esophagitis (Chronic 03/17/14) Hypertension (Chronic) Melanoma (Chronic) Menopausal disorder (Chronic 03/17/14) Other seasonal allergic rhinitis (Chronic 03/17/14) Recurrent major depressive disorder, in full remission (Chronic 03/17/14) Ventricular premature beats (Chronic 02/02/18) Physical Therapy Inpatient Evaluation/Re-Eval M1 PT/OT-IP Prior Functional Status Start: 10/25/19 11:51 Freq: NEEDED Status: Active Protocol: Document 10/25/19 16:27 AW (Rec: 10/25/19 16:55 AW [id number]) Medical Review Prior Functional Status Medical History Reviewed Yes Diet/Fluid Consistency Regular Communication WNL Mobility and Gait Pt was independent with all functional mobility requiring no assistive device. She was active with running, power walking, yoga. Activities of Daily Living and IADL's Independent, though she does report she needed assistance with socks over the past month . 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 She was accustomed to being on her feet at least 3 hours at a time, but was recently limited to 20 minutes. Social History Household Members significant other Living Arrangements House Number of Floors (Floors) One Floor Number of Stairs To Enter/Railing? 2 DRAGAN with no railing but there are sturdy shelves on the right side. Stairs are wide enough to allow significant other to offer hand hold assist on the left. 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 She lives with her significant other, Wojciech, who is able to assist as needed. M2 PT-IP Current Condition Start: 10/25/19 11:51 Freq: NEEDED Status: Active Protocol: Document 10/25/19 16:27 AW (Rec: 10/25/19 16:55 AW [id number]) Physical Therapy Current Condition Current Condition Evaluation Date 10/25/19 Treatment Diagnosis R DEVIKA, impaired mobility Onset Date 10/25/19 Precautions Posterior Hip Precautions No Hip Flexion > 90 degrees,No Hip Internal Rotation,No Hip Adduction Weight Bearing Status Weight Bearing Status Weight Bear as Tolerated M3 PT-IP Subjective Start: 10/25/19 11:51 Freq: NEEDED Status: Active Protocol: Document 10/25/19 16:27 AW (Rec: 10/25/19 16:55 AW [id number]) Subjective Physical Therapy Visit Type Type Initial Evaluation Visit Start Time 14:10 Visit Stop Time 16:25 Total Visit Minutes 35 Notes Pt seen with significant other in room. Split visit (1410- 1430 and [id number]) due to symptomatic response to initial standing. Number of TEXTILE CONSERVATOR Visits 0 Physical Therapy Visit Comments Patient Comments Pt is willing to work with therapy Patient Goals To go home as soon as possible . Therapy Pain Assessment Pain When Pain Assessed During Mobility Pain Present Pain Present Pain Reported Location Right Hip Intensity 5 Pain Management Techniques Apply Cold,Re-positioning, Timing of Activity with Medications M4 PT-IP Mobility and Gait Start: 10/25/19 11:51 Freq: NEEDED Status: Active Protocol: Document 10/25/19 16:27 AW (Rec: 10/25/19 16:55 AW [id number]) PT-Bed Mobility Assessment Supine to Sit Supine to Sit Minimal Assistance,1 Person Assistance,Head of Bed Elevated Sit to Supine Sit to Supine Minimal Assistance,1 Person Assistance Scooting Scooting to Edge of Bed Contact Guard Assistance Scooting Up and Down in Bed Standby Assistance PT-Transfer Assessment Sit to and From Stand Sit to and from Stand Moderate Assistance,2 Person Assistance,Use of Upper Extremities Equipment Transfer Assistive Device Gait Belt,Front Wheeled Walker Orthotic/Prosthetic Devices or Brace: No Transfers Transfer Destination Bed,Bedside Commode Transfer Technique Stand Step Pivot Transfer Ability Level of Assist Moderate Assistance,2 Person Assistance,Use of Upper Extremities Comments Mobility Comments Pt required min A x 1 to support the operative leg and verbal cues to avoid forward flexion to complete supine <> sit transfers. Sit to stand required mod A x 2 for safety due to pt reporting lightheadedness, changes in vision/hearing, and clammy skin during initial standing as well as buckling/poor control of the RLE during subsequent attempts. Transfer to and from [facility] required mod A x 2 and verbal cues to kick RLE out in front to maintain posterior hip precautions. BP during initial standing attempt dropped from 138/81 to 76/51. Pt had appropriate hemodynamic responses during subsequent standing attempts but did endorse mild lightheadedness. Gait Assessment Comments Gait Comments See mobility comments Stair Climbing Assessment Comments Stair Climbing Comments Not assessed. PT-Balance Assessment Sitting Balance and Reactions Static Sitting Balance Ability Good Dynamic Sitting Balance Ability Good Standing Balance and Reactions Static Standing Balance Ability Fair Dynamic Standing Balance Ability Poor Comments Other Balance Tests/Deviations/Treatment Poor balance due to lack of : motor control of RLE. M5 PT-IP Objective Assessments Start: 10/25/19 11:51 Freq: NEEDED Status: Active Protocol: Document 10/25/19 16:27 AW (Rec: 10/25/19 16:55 AW [id number]) Orientation Orientation/Cognition Level of Alertness Alert Orientation Name,Day of Week,Place, Situation Language Function Ability No Deficits Noted Safety Awareness Understands Safety Issues Memory Description No Deficits Noted Gross Range of Motion Upper Extremity ROM Assessment Within Functional Limits Lower Extremity ROM Assessment Right Impaired Strength Upper Extremity Strength Assessment Within Functional Limits Lower Extremity Strength Assessment Right Impaired Sensation Assessment Sensation Gross Sensation WNL Comments Sensation Comments Pt had normal light touch sensation throughout RLE on exam M6 PT-IP Treatment Start: 10/25/19 11:51 Freq: NEEDED Status: Active Protocol: Document 10/25/19 16:27 AW (Rec: 10/25/19 16:55 AW [id number]) Physical Therapy Treatment Exercises Exercises Ankle Pumps,Gluteal Sets,Quad Sets,Heel Slides Education Education Provided Precautions,Weight Bearing Status,Post-Op Packet,Safety Other Treatments Other Treatment Performed Educated pt on PT plan of care , posterior hip precautions, post-op exercises, safe use of FWW, and need for slow transitional movements with attention to symptoms M7 PT-IP Assessment and Plan Start: 10/25/19 11:51 Freq: NEEDED Status: Active Protocol: Document 10/25/19 16:27 AW (Rec: 10/25/19 16:55 AW [id number]) PT Summary Assessment and Plan Potential Rehabilitation Potential Excellent Status of Condition at Evaluation Evolving Summary Impairments Pain,ROM,Strength,Balance,Bed Mobility,Transfers,Gait, Activity Tolerance Assessment Summary 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 At baseline, pt was independent in all regards but admits to needing help to don socks over the past month as well as being limited in standing/walking tolerance due to increasing pain. Pt now presents with symptoms of lightheadedness, vision/ hearing changes, and poor motor control with standing and transfers, requiring mod A x 2 for sit to stand and transfers using FWW. PT anticipates pt will meet the functional goals of this plan of care and be safe to discharge to her home environment when medically stable with the assistance of her significant other, Wojciech, who is retired and able to provide assist without restriction. Pt would also benefit from outpatient PT which is already scheduled. Goals Bed Mobility Goal Standby Assistance Transfer Goal Standby Assistance,Front Wheeled Walker Gait Goal Standby Assistance,Front Wheel Walker Gait Distance 150 Other Goals - Up/down 2 steps with R railing and L hand hold assist - Pt will verbalize all posterior hip precautions Days to Meet Goals 2 Frequency of Treatment Frequency Of Treatment Twice a Day Treatment Plan Physical Therapy Treatment Plan Bed Mobility Training,Transfer Training,Gait Training, Therapeutic Exercise,Balance Retraining,Post Op Education, Discharge Planning,Hot or Cold Pack,Neuromuscular Re-ed, Coordination Retraining,Manual Therapy Other Recommendations and Next Treatment transfers, assess gait with Focus FWW, attempt stairs if able Recommendations To Nursing Amount of Assist Needed 2 Person Assist Discharge Recommendations PT Discharge Recommendations Home with Assistance, Outpatient PT
[2019-10-25] MEDS: ACETAMINOPHEN 325 MG TABLET 650 MG PO ×2 (17:20→23:36)
[2019-10-25] MEDS: IBUPROFEN 600 MG TABLET PO ×2 (17:22→23:36)
[2019-10-25] MEDS: METHOCARBAMOL 500 MG TABLET 750 MG PO (17:51)
[2019-10-25] MEDS: OXYCODONE IR 10 MG TABLET PO ×2 (18:43→23:35)
--- NOTE | 2019-10-25 18:45 | CM.DANOTE ---
DC Assessment: EMR reviewed: Patient is a 59 yr old female who was admitted for Rt DEVIKA preformed by Dr. Katz. Patients PCP is Dr. Schmidt. Cm/RN met with patient at the bedside and explained CM/RN role. patient is very pleasant and knowledgeable about her needs. Patients significant other Wojciech was there as well and participated in the d/c planning discussion. PT attempted to work with the patient earlier in the day and the patient became hypertensive when she was sat up. Patient is now doing better and complete PT evaluation in the AM. Patient was alert and oriented x3 at the time of CM/RN visit. Patient is I with all ADL's at baseline. Patient is a [facility] patient and has Out patient Physical therapy set up with [facility]. DME- patient has FWW, Cane, bath bench and a toilet seat riser at home and ready when she is d/c. Patient lives in a single level home with one step into her house from her garage. patients significant other is home full-time and will be able to care for patient when she returns home. I: 1st: [facility] 2nd: Self Pay Plan: D/C home with significant other when medically stable and PT evaluation is complete. No identified D/C planning needs noted at this time. CM department will follow to manage any new D/C planning needs that might arise. Shala Lam RN Discharge Planning/Care Management CM Discharge Assessment Start: 10/25/19 18:41 Freq: Status: Active Protocol: Document 10/25/19 18:42 HS (Rec: 10/25/19 18:45 HS [id number]) Discharge Planning Assessment Assigned Help Desk Analyst Shala Lam RN DPOA/Assigned Designee Name Cecilio Sullivan) significant other Contact Information [phone] Advance Directives? Yes Advance Directives on File No History Provided By Patient Has Patient been admitted in last 30 No days? Prior Living Arrangements House Household Members significant other Type of transporation used prior to Drives own vehicle admit Independent with ADL's Yes Is patient alert and oriented? Yes Needs Assistance With Home Chores / Shopping Caregiver for Another No DME Already Rented / Owned Bath Bench,Elevated Toilet Seat,FWW / Walker,Cane Patient/Family Preference OP PT Therapy Discharge Plan Home Referrals Initiated None needed Whiteboard Updated in Patient Room with Yes name and ext. # of Help Desk Analyst Review Status In Process Next Review Type Continued Stay Review Pre-Anesthesia Assessment Start: 10/05/19 10:31 Freq: Status: Complete Protocol: Document 10/05/19 10:32 [facility] (Rec: 10/05/19 11:21 [facility] [id number]) Pre-Anesthesia Assessment Patient Information Reviewed Via Phone Assessment Assessment Completed With Patient H&P Completed Within 30 Days Yes Diagnostic Results BMP/CMP,CBC,EKG Comment EKG/Labs @ 09/30/19 Primary Care Provider Salvador Schmidt Seen Specialist in Last 12 Months Yes Specialist Seen Orthopedist Primary Language Lebanese Mint Wafer Depositor Required No Height 177.8 cm Weight 82.554 kg Body Mass Index (BMI) 26.1 Hearing Ability Normal Visual Impairment No Limitations Visual Assist Glasses Dentition Type Teeth, Natural Present,Teeth, Missing Barriers to Learning None Other Aids No Hx Anesthesia Reactions No Hx Family Anesthesia Reaction No: Pt is adopted Hx Malignant Hyperthermia No Hx Blood Transfusions Yes: Age 18 Hx Blood Transfusion Reaction No Anesthesia Review Requested No alcohol intake current alcohol intake frequency holidays/special occasions only Smoking Status Former smoker how long ago did patient quit smoking Quit [id number] Substance Use Type does not use Pain Present Pain Reported Musculoskeletal Symptoms Abnormal Gait,Difficulty Walking,Joint Pain History of Falling (Recent or History of No ) Patient is completely paralyzed or No completely immobile Mental Status Oriented to own ability Is patient on oxygen? No Does patient have MART/SOB No Hx Sleep Apnea No Currently Taking a Beta Lita No Can You Climb a Flight of Stairs Without Yes SOB Hx Chest Pain No Hx SOB No Hx Syncope or Dizziness No Anti-Coagulant Therapy No Has a Biometric Fingerprinting Technician No Cardiac Testing No Hx Pacemaker/ICD No Pacemaker Rep Required? No Cardiac Clearance Received Not Applicable Diet Type At Home Regular dysphagia No Urinary Catheter Present No Hx Urinary Self Catheterization No Diabetes No Patient No Lactating No Hx Drug Resistant Organism No Presence of External or Internal Medical No Devices Have you traveled outside the [place] in the last 30 days? Marital Status Single Lives With significant other Prior Living Arrangements House Support System Significant Other Does the Patient Have Assistance After Yes Surgery Patient Discharge Plan Description Return Home Comment Pt advised same day surgery per surgeon Feels Safe in Current Environment Yes Been Physically Hurt or Threatened By a No Person in Current Environment Do you have thoughts of harming yourself None or others? Are you currently considering suicide? No Do you have a plan to hurt yourself or No Plan others? Do You Have Any Spiritual Beliefs That No May Affect Your HC Choices? Do You Have Any Cultural Practices That No May Affect Your HC Choices? Comment Orthodox Who Can We Speak to About Patient's Care Family, friends Identifying Code for Release of Patient Declines to issue Information Health Care Proxy/Next of Kin Wojciech (S.O) Papa (brother) Health Care Proxy Phone Number Bill: [phone] [place]: Emergency Contact Name Wojciech (S.O) Papa (brother) Emergency Contact Phone Number Bill: [phone] [place]: Advance Directives? Yes Advance Directives on File No Power of Waterproof Bag Cutting Machine Operator No PAC Instructions Do not shave/clip surgical site,Durable medical equipment ,Medications to take/avoid, Nasal antibiotic,No ETOH/ petroleum product on skin DOS, NPO,Post-op transportation,Pre -surgical wash,Sturdy shoes/ comfortable clothes,Do not bring valuables and remove jewelry
--- NOTE | 2019-10-25 22:15 | PC.NURSE ---
Evening note: Eileen is Ox3 and to situation, VS stable, denies dizziness or nausea during transfer to BSC. BP stable during transfer to BSC. RA high 90's. Reports doing her deep breathing exercise, left IS at home. I asked if she would like me to provide her with IS and she declined saying she would not like to be charged for one. R hip with bulky gauze drsg that is CDI. Pain: Around first assessment, patient requested that I call physician to have Ibuprofen & tylenol added to orders, and said those work really well for me at home. I notified answering service, who told me we cannot find the PA--page Dr Katz directly. I notified Dr Katz of patient request, new orders given for tylenol and ibuprofen q6h prn, meds then given to patient. During reassessment she reported pain not changed, rated at 6/10 and leg jumping and twitchy. She said that her methocarbamol is the only thing that helps with the spasms. Also told me that she didn't think that oxycodone 5 mg was working. I notified on-call Doc, Dr Lam, about patient report of pain not relieved by oxycodone 5 mg, and about my previous call to Dr Katz. She ordered to increase oxycodone to 10 mg and ordered methocarbamol as well. Pt able to wait for 3 hour pierce before taking increased dose of oxycodone. Reports med changes have helped, rates as 3 or 4, able to rest & says RLE spasms have stopped. CMS: Patient with strong pedal pulses bilaterally, wearing SCD's. Can lift RLE and bend knee slightly but not lift RLE off bed, reports numb to R medial thigh & medial knee. At 1630 assisted up to BS with PT and me standing by, when she attempted to put weight on RLE her knee buckled and her leg turned out laterally. Able to pivot transfer to BSC (using walker, gait belt, 2 max assist.) Voided 400 ml, some urinary incontinence, mesh underwear & bia-pad now on. Back to bed. Since that time she has voided another 400 ml via bedpan, opting not to transfer to BSC because I was the only staff member available at that time to assist, and she reports her RLE is still numb to medial thigh & knee.
[2019-10-25] MEDS: SODIUM CHLORIDE 0.9% FLUSH 10 ML IV (23:37)
--- NOTE | 2019-10-25 23:53 | PC.NURSE ---
Addendum entered by Yi Segura R.N. 10/26/19 04:45: Now states right leg is starting to spasm again so medicated with Methocarbamol. Addendum entered by Yi Segura R.N. 10/26/19 04:18: Assisted onto bedpan but urine spilled so patient agreeable to trying to get out of bed so linen can be changed. Still with some minimal numbness in right medial thigh but able to get up with walker and 1 assist while bedding changed and then assisted back to bed. States pain much improved and was able to sleep well after taking the Vistaril. Medicated with Vicodin (patient request) for 4/10 right hip pain. Addendum entered by Yi Segura R.N. 10/26/19 01:10: States pain has improved but still having spasms and requests Vistaril; medicated as requested. Bed alarm on as spouse asleep and patient reports never having taken Vistaril previously and uncertain of reaction. Original Note: Patient is alert and oriented. Breath sounds CTA with RA sat of 97%. HRR. Denies nausea. BT present and states she has passed flatus. Has voided good amounts and denies dysuria, frequency or urgency. Wanting to use bedpan overnight due to numbness medial aspect of right thigh. Dressing to right hip is CDI. Having spasm/cramping/sharp intermittent pain in right hip/thigh so medicated with Oxycodone + Tylenol + Ibuprofen per her request and ice pack applied. CMS is intact except for the thigh numbness. Wearing bilateral calf SCD's. Does have some swelling in right hip/thigh. Following posterior hip precautions. Fall risk score is moderate. Spouse rooming in.
[2019-10-26] MEDS: hydrOXYzine pamoate 25 MG CAPSULE PO (01:06)
[2019-10-26] MEDS: HYDROCODONE/ACET 5/325 TABLET 1 TAB PO ×2 (04:14→12:17)
[2019-10-26 04:39] VITALS: BP 134/71; PULSE 67; RESP 16; TEMP 36.2; O2SAT 93
[2019-10-26] MEDS: METHOCARBAMOL 500 MG TABLET 750 MG PO (04:44)
[2019-10-26 06:14] LABS: Hemoglobin 8.7 g/dL (12.0-16.0)
[2019-10-26 08:00] VITALS: BP 131/80; PULSE 83; RESP 18; TEMP 36.7; O2SAT 100
--- NOTE | 2019-10-26 08:15 | P.PN_ITS ---
Subjective Subjective Date Patient Seen: 10/26/19 Time Patient Seen: 08:15 Interval history: Patient's pain is well controlled. Denies fever chills. No nausea vomiting. Patient is having no shortness of breath or chest pain. Patient was hypotensive with physical therapy twice yesterday. She was able to get up out of bed in use bedside commode a couple times later yesterday evening. Exam Vital Signs (past 8 hours): - 10/26/19 04:39 Temperature 97.2 F L Pulse Rate 67 Respiratory Rate 16 Blood Pressure 134/71 Pulse Oximetry 93 Oxygen Delivery Method Room Air Oxygen Flow Rate 0 Narrative Exam Narrative: Pleasant 59-year-old female resting comfortably in bed in no a pparent distress. Right hip dressing is clean, dry and intact. Right leg is warm and dry. Sensation grossly intact to light touch. Motor functions intact distal right lower extremity. Objective Labs Result Diagrams: 10/26/19 05:52 Labs: Laboratory Results - last 24 hr 10/26/19 05:52 Hgb 8.7 L Hct 25.0 L Assessment & Plan Post-op Postoperative Procedures: Procedures Operation Date: 10/25/19 07:45 Actual Procedures Side Surgeon p Total Hip Arthroplasty Right Zen Katz MD postop day 1 status post right total hip arthroplasty. Posterior hip precautions. Mobilize with physical therapy. Likely discharge home later today.
[2019-10-26] MEDS: SODIUM CHLORIDE 0.9% FLUSH 10 ML IV (09:30)
[2019-10-26] MEDS: OXYCODONE IR 5 MG TABLET PO (09:30)
[2019-10-26] MEDS: ENOXAPARIN 40 MG/0.4 ML SYRINGE SUBCUT (09:31)
--- NOTE | 2019-10-26 09:59 | PT.IPTN ---
Current Diagnoses Unilateral primary osteoarthritis, right hip (10/25/19) Wedge compression fracture of third lumbar vertebra, sequela (10/25/19) Surgery Performed Operation Date: 10/25/19 07:45 Actual Procedures p Total Hip Arthroplasty(Right) - Zen Katz MD Physical Therapy Treatment Note M2 PT-IP Current Condition Start: 10/25/19 11:51 Freq: NEEDED Status: Active Protocol: Document 10/25/19 16:27 AW (Rec: 10/25/19 16:55 AW [id number]) Physical Therapy Current Condition Current Condition Evaluation Date 10/25/19 Treatment Diagnosis R DEVIKA, impaired mobility Onset Date 10/25/19 Precautions Posterior Hip Precautions No Hip Flexion > 90 degrees,No Hip Internal Rotation,No Hip Adduction Weight Bearing Status Weight Bearing Status Weight Bear as Tolerated M3 PT-IP Subjective Start: 10/25/19 11:51 Freq: NEEDED Status: Active Protocol: Document 10/26/19 09:46 AW (Rec: 10/26/19 09:59 AW [email or web address]) Subjective Physical Therapy Visit Type Type Treatment Note Visit Start Time 09:28 Visit Stop Time 09:45 Total Visit Minutes 17 Number of PIPE FITTER APPRENTICE Visits 0 Physical Therapy Visit Comments Patient Comments Pt is feeling much better today and is ready to move Therapy Pain Assessment Pain When Pain Assessed During Mobility Pain Present Pain Present Pain Reported Location Right Hip Intensity 5 Scale Used 4/10 at rest; 5/10 with mobility Description Aching,Pressure,Tightness Pain Management Techniques Apply Cold,Re-positioning, Timing of Activity with Medications M4 PT-IP Mobility and Gait Start: 10/25/19 11:51 Freq: NEEDED Status: Active Protocol: Document 10/26/19 09:46 AW (Rec: 10/26/19 09:59 AW [id number]) PT-Transfer Assessment Sit to and From Stand Sit to and from Stand Standby Assistance Equipment Transfer Assistive Device Gait Belt,Front Wheeled Walker Transfers Transfer Destination Chair Transfer Technique pt ambulated with FWW Transfer Ability Level of Assist Standby Assistance Comments Mobility Comments Pt encountered sitting up in chair. She reports she has been managing bed mobility and supine <> sit independently. She complete sit to stand transfer using FWW SBA with good, uncued attention to posterior hip precautions. Upon return to chair, pt sat SBA as she verbalized and maintained hip flexion precaution. Gait Assessment Gait Gait Assistance Required: Standby Assistance Distance (Feet) 230 Able to Maintain Weight Bearing Status Yes During Gait Assistive Devices Assistive Device Gait Belt,Front Wheeled Walker Gait Deviations General Gait Pattern Antalgic,Decreased Stride Length,Decreased Feet Clearance,Step-to Gait Factors Limiting Gait Function Factors Limiting Gait Function Decreased Activity Tolerance, Decreased Sensation,Decreased Strength,Pain Comments Gait Comments Pt ambulated 230 feet using FWW SBA. She reported mild lightheadedness twice which resolved quickly without need for increased assist. Pt educated to continue to have SBA for mobility for the near future. She was able to normalize her gait pattern in response to minimal verbal cues with good swing-through and adequate step length bilaterally. Stair Climbing Assessment Evaluation Level of Assist On Stairs Standby Assistance Devices Stair Climbing Assistive Devices Left Railing,Right Railing Technique/Endurance Stair Climbing Direction Ascend and Descend Stair Climbing Technique Step to Step Number of Steps Climbed 3 Stair Climbing Set # Repetitions (reps) 2 Comments Stair Climbing Comments After brief education, pt cleared stairs on the first rep using B rails SBA and with good sequencing requiring no cues. On second rep, pt used unilateral hand rail and unilateral hand hold assist to simulate home environment with need of no more than SBA. PT-Balance Assessment Sitting Balance and Reactions Static Sitting Balance Ability Normal Dynamic Sitting Balance Ability Normal Standing Balance and Reactions Static Standing Balance Ability Good Dynamic Standing Balance Ability Good Device Used FWW M5 PT-IP Objective Assessments Start: 10/25/19 11:51 Freq: NEEDED Status: Active Protocol: Document 10/25/19 16:27 AW (Rec: 10/25/19 16:55 AW [id number]) Orientation Orientation/Cognition Level of Alertness Alert Orientation Name,Day of Week,Place, Situation Language Function Ability No Deficits Noted Safety Awareness Understands Safety Issues Memory Description No Deficits Noted Gross Range of Motion Upper Extremity ROM Assessment Within Functional Limits Lower Extremity ROM Assessment Right Impaired Strength Upper Extremity Strength Assessment Within Functional Limits Lower Extremity Strength Assessment Right Impaired Sensation Assessment Sensation Gross Sensation WNL Comments Sensation Comments Pt had normal light touch sensation throughout RLE on exam M6 PT-IP Treatment Start: 10/25/19 11:51 Freq: NEEDED Status: Active Protocol: Document 10/26/19 09:46 AW (Rec: 10/26/19 09:59 AW [email or web address]) Physical Therapy Treatment Other Treatments Other Treatment Performed Pt states she has been doing her exercises and has no quesions. Educated pt to consider exercise as medicine and to be mindful of dosing as she may have a tendency to over-perform. M7 PT-IP Assessment and Plan Start: 10/25/19 11:51 Freq: NEEDED Status: Active Protocol: Document 10/26/19 09:46 AW (Rec: 10/26/19 09:59 AW [email or web address]) PT Summary Assessment and Plan Potential Rehabilitation Potential Excellent Status of Condition at Evaluation Evolving Summary Assessment Summary On POD1, pt tolerated activity with good hemodynamics. She demonstrated good attention to posterior hip precautions and safety. Once medically stable , pt is safe to discharge to home environment with assist from her significant other. Goals Bed Mobility Goal Standby Assistance Transfer Goal Standby Assistance,Front Wheeled Walker Gait Goal Standby Assistance,Front Wheel Walker Gait Distance 150 Other Goals - Up/down 2 steps with R railing and L hand hold assist - Pt will verbalize all posterior hip precautions Days to Meet Goals 1 Frequency of Treatment Frequency Of Treatment Twice a Day Treatment Plan Physical Therapy Treatment Plan Bed Mobility Training,Transfer Training,Gait Training, Therapeutic Exercise,Balance Retraining,Post Op Education, Discharge Planning,Hot or Cold Pack,Neuromuscular Re-ed, Coordination Retraining,Manual Therapy Recommendations To Nursing Amount of Assist Needed Standby Assistance Discharge Recommendations PT Discharge Recommendations Home with Assistance, Outpatient PT
--- NOTE | 2019-10-26 10:14 | CM.DPC ---
DCP/continued: Reviewed chart. Patient is POD#1 from right DEVIKA performed by Dr. Katz. Met with patient and significant other/Bill at bedside explained CM/SW role. Patient reports that she hopes to d/c home today. Patient has supportive family and plans to do outpatient therapy at [facility] in [facility]. Patient does not anticipate any d/c planning needs. P: Home with supportive family/significant other when medically stable. ADRIANE Cook
--- NOTE | 2019-10-26 10:50 | P.DS_ITS ---
History of Present Illness History of Present Illness Date Patient Seen: 10/26/19 Time Patient Seen: 10:50 Chief complaint: [id number] Right Total Hip Arthroplasty Narrative: And did well with physical therapy. No dizziness. Patient's is home to assist her. Discharge Providers Provider Date of admission: 10/25/19 05:55 Discharge Date: 10/26/19 Consults: 10/25/19 10:39 Consult to Discharge Planning Routine Comment: Consult to Physical Therapy Evaluate & Treat Comment: Physician Instructions: post op DEVIKA protocol Consult to Respiratory Therapy Evaluate & Treat Comment: Physician Instructions: Evaluate and treat Discharge provider: Higinio Arceo PA-C Summary Hospital Course Discharge Diagnosis: Status post right total hip arthroplasty secondary to severe right hip osteoarthritis Hospital Course: Procedure: Right total hip arthroplasty (CPT code 79068 with medical claims assistant) Same procedure as scheduled: Yes Indications: Patient is an 59-year-old female with severe right hip DJD. The patient has pain with activities and at rest, limited ambulation and activity tolerance, difficulties with ADLs, and failure of conservative treatment. We have discussed the nature of condition, treatment options, risks and benefits, and patient elects to proceed with total hip arthroplasty and gives informed consent. Surgeon: eZn Katz Resources Representative: Higinio Arceo Anesthesia Type: General and Spinal Operative Notes Closure Type: primary Specimen(s): none sent Prosthetic devices, grafts, tissues, transplants, or devices: Acetabulum: Lam and Nephew R3 acetabular component size 52 mm Femoral component: Lam and Nephew Anthology stem size 8 with standard offset Femoral head: 36 mm + 0 Oxinium Estimated Blood Loss (mL): 100 Blood products transfused: none Patient admitted to the hospital for right total hip arthroplasty. Patient consented to the same. Patient taken to the operating room yesterday underwent right total hip arthroplasty. Patient back in her room recovering well as in stable condition. Patient had some issues with hypotension yesterday when working with physical therapy. She was given bolus and is now stable. She worked with physical therapy this morning without any hypotension is ready for discharge home. Patient will be discharged home today in stable condition. She will take [place] 5/325 1-2 PO every 4 6 hours as needed pain. Prescription provided. Patient rather take the [place] as the oxycodone seems to make her anxious. She will dispose of the oxycodone prescription that she had filled. Status at Discharge Cognitive/behavioral status at discharge: at baseline, confused Functional status at discharge: uses cane/walker Overall status at discharge: patient is progressing back to baseline Time Spent with Patient Time spent: Less than 30 minutes Exam Vital Signs (past 8 hours): - 10/26/19 04:39 10/26/19 08:00 Temperature 97.2 F L 98.1 F Pulse Rate 67 83 Respiratory Rate 16 18 Blood Pressure 134/71 131/80 Pulse Oximetry 93 100 Oxygen Delivery Method Room Air Oxygen Flow Rate 0 Narrative Exam Narrative: see progress note Objective Labs Result Diagrams: 10/26/19 05:52 Labs: Laboratory Results - last 24 hr 10/26/19 05:52 Hgb 8.7 L Hct 25.0 L Discharge Plan Discharge Plan Patient Disposition: Home Discharge orders & Medications Prescriptions: New enoxaparin [Lovenox] 40 mg/0.4 mL Syringe 40 mg subcut DAILY 9 Days Qty: 0.4 RF: 0 hydrocodone-acetaminophen 5-325 mg Tablet 1 tab PO Q6HR PRN (Reason: Pain, Moderate (4-6)) Qty: 60 RF: 0 Continued omeprazole 20 mg tablet,delayed release (DR/EC) 20 mg PO DAILY RF: 0 citalopram 20 mg tablet 20 mg PO QDAY RF: 0 methocarbamol 750 mg tablet 750 mg PO QID PRN (Reason: Spasms) RF: 0 fluticasone propionate [Flonase Allergy Relief] 50 mcg/actuation [place],Suspension 1 spray INTRANASAL DAILY PRN (Reason: Congestion) RF: 0 ibuprofen 400 mg tablet 400 mg PO Q4H PRN (Reason: Pain) RF: 0 acetaminophen [Tylenol Extra Strength] 500 mg tablet 500 mg PO Q4H PRN (Reason: Pain) RF: 0 Discontinued hydrocodone-acetaminophen 5-325 mg Tablet 1 tab PO BEDTIME RF: 0 Follow up/Referrals: Zen Katz MD [Physician] - (1 wk) Discharge Health Status Multidrug resistant organism: No MDRO Diet/Activity/Treatments Diet: Diet as Tolerated Activity: WBAT, Posterior hip precautions Cold/Heat Therapy: as needed Skin/Wound/Dressing Care Report to your healthcare provider any signs of infection, such as:: chills, fever, unusual drainage and unusual redness Dressing: keep clean and dry
[2019-10-26] MEDS: IBUPROFEN 600 MG TABLET PO (12:19)
[2019-10-26] MEDS: ACETAMINOPHEN 325 MG TABLET 650 MG PO (12:19)
--- NOTE | 2019-10-26 12:26 | PC.NURSE ---
Discharge Pt states she is not a fan of oxycodone. Tried 5mg this AM and states she feels fuzzy. Gave pt [place] prior to d/c and this is the Rx she will take home. Rx given to pt. D/c instructions provided to pt. Aware to f/u with MD and to contact with any additional questions or concerns. pt states she took all belongings with her. Left in w/c with RN escort.
== END 2019-10-26 12:29 | disposition home or self-care (01) | DRG 470 ==
PROVIDERS: Admitting Provider Orthopaedic Surgery; Visit Provider Orthopaedic Surgery
PROC: 0SR90JZ Replacement of Right Hip Joint with Synthetic Substitute, Open Approach (ICD-10-PCS; CPT 27130; principal; 2019-10-25 07:45)
DX: M16.11 Unilateral primary osteoarthritis, right hip (principal); F32.9 Major depressive disorder, single episode, unspecified; K21.9 Gastro-esophageal reflux disease without esophagitis; I95.9 Hypotension, unspecified; Z87.891 Personal history of nicotine dependence
CPT/HCPCS: 36415; 72170; 85014; 85018; 97161; 97530; C1776; J0131; J0690; J1100; J1650; J1885; J2250; J2270; J2405; J2704; J3010

== ENCOUNTER 2019-11-16 14:20 | Emergency (ER) | payer OTHER, SELFPAY ==
[2019-10-25 10:55] VITALS: BMI 27.1
[2019-11-16] VITALS (8 sets, daily range): BP systolic 141–174; BP diastolic 72–89; PULSE 58–70; RESP 10–18; TEMP 36.2; O2SAT 98–100
--- NOTE | 2019-11-16 15:03 | DI.RAD.S_ITS ---
PROCEDURE: XR CHEST 1V INDICATIONS: chest pain TECHNIQUE: One view of the chest was acquired. COMPARISON: None. FINDINGS: Surgical changes and devices: None. Lungs and pleura: Lungs are clear. No pleural effusions or pneumothorax. Mediastinum: Mediastinal contours appear normal. Heart size is normal. Bones and chest wall: No suspicious bony lesions. Overlying soft tissues appear unremarkable. IMPRESSION: No acute cardiopulmonary findings. Dictated by: Adilene Mitchell M.D. on 11/16/2019 at 14:19 Approved by: Adilene Mitchell M.D. on 11/16/2019 at 14:19
[2019-11-16 15:48] LABS: Add Manual Diff / Slide Review NO; Basophils Absolute Auto 0 /uL (0-100); Basophils Percent Auto 0.9 % (0-2); Eosinophils Absolute Auto 100 /uL (0-450); Eosinophils Percent Auto 1.8 % (2-4); Hematocrit 34.4 % (36-46); Lymphocytes Absolute Auto 1500 /uL (1100-4500); Lymphocytes Percent Auto 34.1 % (25-40); Mean Corpuscular HGB Conc 34.8 % (30-36); Mean Corpuscular Volume 94.7 fL (80-100); Monocytes Absolute Auto 500 /uL (0-900); Monocytes Percent Auto 10.3 % (3-14); Neutrophils Absolute Auto 2300 /uL (1500-7000); Neutrophils Percent Auto 52.9 % (50-75); Platelet Count 397 X10^3/uL (150-400); Red Blood Cell Count 3.63 X10^6/uL (4.0-5.2); Red Cell Distribution Width 13.4 % (11.6-14.8); White Blood Cell Count 4.4 X10^3/uL (4.5-11.0)
[2019-11-16 15:53] LABS: Prothrombin Time 11.6 SECONDS (10.1-12.7)
[2019-11-16 15:55] LABS: PTT Partial Thromboplastin Tim 36 SECONDS (26.4-36.2)
[2019-11-16 15:57] LABS: Alanine Aminotransferase 17 IU/L (<35); Albumin 4.6 g/dL (3.5-5.0); Albumin Globulin Ratio 1.6 (1.0-2.8); Alkaline Phosphatase 109 U/L (38-126); Aspartate Aminotransferase 21 IU/L (14-36); Bilirubin Total 0.3 mg/dL (0.2-1.3); Blood Urea Nitrogen 12 mg/dL (7-17); Calcium 9.4 mg/dL (8.4-10.2); Carbon Dioxide 28 mmol/L (22-32); Chloride 102 mmol/L (98-107); Creatine Kinase 40 U/L (30-135); Estimated Glomerular Filt Rate > 60.0 mL/min (>60); Globulin 2.9 g/dL (1.7-4.1); Glucose 99 mg/dL (80-110); HEMOLYSIS < 15 (0-50); Lipase 124 U/L (23-300); Potassium 3.9 mmol/L (3.4-5.1); Sodium 139 mmol/L (137-145); Total Protein 7.5 g/dL (6.3-8.2)
[2019-11-16 15:58] LABS: Magnesium 2.2 mg/dL (1.6-2.3)
[2019-11-16 16:09] LABS: Troponin I < 0.012 ng/mL (0.01-0.034)
[2019-11-16] MEDS: SODIUM CHLORIDE 0.9% 1,000 ML 1000 ML IV (16:19)
--- NOTE | 2019-11-16 16:50 | DI.CT.S_ITS ---
PROCEDURE: CT HEAD/BRAIN WO CON INDICATIONS: dizziness x6-8 days TECHNIQUE: Noncontrast 4.5 mm thick angled axial sections acquired from the foramen magnum to the vertex, with coronal and sagittal reformats. For radiation dose reduction, the following was used: automated exposure control, adjustment of mA and/or kV according to patient size. COMPARISON: None. FINDINGS: Image quality: Excellent. CSF spaces: Basal cisterns are patent. No extra-axial fluid collections. Ventricles are normal in size and shape. Brain: No midline shift. No intracranial masses or hemorrhage. Fernandes-white matter interface is normal. Skull and face: Calvarium and visualized facial bones are intact, without suspicious lesions. Sinuses: Visualized sinuses and mastoids are clear. IMPRESSION: Source of dizziness is not found. Dictated by: Jong Howe M.D. on 11/16/2019 at 17:09 Approved by: Jong Howe M.D. on 11/16/2019 at 17:09
--- NOTE | 2019-11-16 20:44 | ED_ITS ---
HPI - Dizziness <Ayanna LukeDAVIDP-BC - Last Filed: 11/16/19 20:55> General Chief Complaint: Dizziness Stated Complaint: DIZZY LIGHT HEADED Time Seen by Provider: 11/16/19 15:17 Source: patient Mode of arrival: Ambulatory Limitations: no limitations History of Present Illness HPI Narrative: The patient is a 59-year-old female former smoker with history of total hip replacement who presents with a chief complaint of dizziness and lightheadedness for the past 6 days. She is 3 weeks postop of a total hip arthroplasty. She states that she has been dizzy on and off for the past 6 days. She denies any exacerbating factors, states happens when she is at rest lying flat on her back, when she is moving etcetera. She is concerned about her potassium level and concern for dehydration. She denies any chest pain shortness of breath. She denies any focal weakness. She states she is not sure if it is a spinning sensation or lightheadedness. Related Data Home Medications Medication Instructions Recorded Confirmed acetaminophen 500 mg tablet 500 mg PO Q4H PRN 10/05/19 11/16/19 ibuprofen 400 mg tablet 400 mg PO Q4H PRN tab 10/05/19 11/16/19 methocarbamol 750 mg PO QID PRN 10/05/19 11/16/19 fluticasone propionate [Flonase 1 spray INTRANASAL DAILY PRN 10/25/19 11/16/19 Allergy Relief] aspirin 81 mg PO BID 11/16/19 11/16/19 ranitidine HCl 150 mg PO BID 11/16/19 11/16/19 Previous Rx's Medication Instructions Recorded hydrocodone-acetaminophen 1 tab PO Q6HR PRN #60 tab 10/26/19 citalopram 20 mg tablet 40 mg PO DAILY #180 tab 11/18/19 Allergies Allergy/AdvReac Type Severity Reaction Status Date / Time OSEI Inhibitors Allergy Mild COUGH Verified 10/25/19 06:39 [OSEI INHIBITORS] bacitracin Allergy Mild Redness of Verified 10/25/19 06:39 [From NEOSPORIN Skin ([id number])] neomycin Allergy Mild Redness of Verified 10/25/19 06:39 [From NEOSPORIN Skin ([id number])] polymyxin B Allergy Mild Redness of Verified 10/25/19 06:39 [From NEOSPORIN Skin ([id number])] hydrochlorothiazide AdvReac Severe VERY LOW Verified 10/25/19 06:39 POTASSIUM Calcium Channel Blocking AdvReac Unknown edema Verified 10/25/19 06:39 Agents-Dih [CALCIUM CHANNEL BLOCKING AGENTS-DIH] ANGIOTENSIN II RECEPTOR ANTAG AdvReac Mild MANY Uncoded 10/25/19 06:39 Review of Systems <MARK Langston - Last Filed: 11/16/19 20:55> Review of Systems Narrative: GENERAL: Denies chills, fatigue, malaise, fever, sweats. HEENT: Denies sinus pain, ear pain, sore throat, difficulty swallowing, dizziness. RESPIRATORY: Denies dyspnea, cough, wheezing, hemoptysis, sputum. CARDIOVASCULAR: Denies chest pain, palpitations, orthopnea, edema, GASTROINTESTINAL: Denies nausea, vomiting, abdominal pain, diarrhea, constipation, melena. : Denies dysuria, frequency, incontinence, hematuria, urinary retention. MUSCULOSKELETAL: denies weakness, joint pain, or bony pain SKIN: Denies rash, skin lesions, or other NEUROLOGIC: See HPI PSYCHIATRIC: No concerning psychosocial issues. 12 point review of systems is negative except for those stated above Patient History <MARK Langston - Last Filed: 11/16/19 20:55> Medical History Abscess (Acute ~1993) Gastroesophageal reflux disease without esophagitis (Chronic 03/17/14) Hypertension (Chronic) Melanoma (Chronic) Menopausal disorder (Chronic 03/17/14) Other seasonal allergic rhinitis (Chronic 03/17/14) Recurrent major depressive disorder, in full remission (Chronic 03/17/14) Ventricular premature beats (Chronic 02/02/18) Surgical History Hx of breast augmentation (Acute ~1987) Hx of dilation and curettage (Acute ~1978) Social History marital status: unmarried,living together number of children: 0 household members: significant other lives independently: Yes caregiver/support person: No housing: house pets and animals: No education level: other (Associates degree) occupational status: employed (RN) current occupational exposures/hazards: Yes camille/anabaptist: Rastafari leisure activities: sports (Football, Baseball), exercise (Walking, Biking) and other (Outdoor activities, jewelry making) Smoking Status: Former smoker Tobacco: How many years used: 20 Smokeless tobacco user: other (Cigarettes) quit status: quit date established (~9325-9743) second hand exposure: Yes (With partner a few years back.) alcohol intake: current substance use type: does not use Smoking Status: Former smoker alcohol intake frequency: holidays/special occasions only Substance Use Type: does not use Exam <Ayanna Luke, QUARTZ CUTTER-BC - Last Filed: 11/16/19 20:55> Narrative Exam Narrative: GENERAL: This is a well-nourished, well-developed patient, in no acute distress HEAD: Atraumatic. Normocephalic. No temporal or scalp tenderness. EYES: Pupils equal round and reactive. Extraocular motions intact. No scleral icterus. No injection or drainage. ENT: Nose without bleeding, purulent drainage or septal hematoma. Throat without erythema, tonsillar hypertrophy or exudate. Uvula midline. Airway patent. NECK: Trachea midline. No JVD or lymphadenopathy. Supple, nontender, no meningeal signs. CARDIOVASCULAR: Regular rate and rhythm RESPIRATORY: Clear to auscultation. Breath sounds equal bilaterally. No wheezes, rales, or rhonchi. No cough. No increased respiratory effort. No accessory muscle use. GASTROINTESTINAL: Abdomen soft, non-tender, nondistended. No hepato- splenomegaly, or palpable masses. No guarding. EXTREMITIES: No clubbing, cyanosis, or edema. No joint tenderness, effusion, or edema noted. BACK: Nontender without deformity or crepitance. No flank tenderness. NEURO: AOx3. Clear speech. No gross cranial nerve deficit. Strength is equal upper and lower extremities bilaterally. Stable gait. Finger-nose test intact. SKIN: No rash or erythema on visible skin Initial Vital Signs Initial Vital Signs: Vital Signs Temperature 97.2 F L 11/16/19 14:22 Pulse Rate 62 11/16/19 14:22 Respiratory Rate 18 11/16/19 14:22 Blood Pressure 169/76 H 11/16/19 14:22 Pulse Oximetry 99 11/16/19 14:22 <Coby Lyman MD - Last Filed: 11/23/19 08:09> Initial Vital Signs Initial Vital Signs: Vital Signs Temperature 97.2 F L 11/16/19 14:22 Pulse Rate 62 11/16/19 14:22 Respiratory Rate 18 11/16/19 14:22 Blood Pressure 169/76 H 11/16/19 14:22 Pulse Oximetry 99 11/16/19 14:22 Scores <MARK Langston - Last Filed: 11/16/19 20:55> GCS William coma scale eye opening: Spontaneous William coma scale verbal response: Orientated [place] coma scale motor response: Obey commands [place] coma scale total score: 15 Course <MARK Langston - Last Filed: 11/16/19 20:55> Orders Ordered: Discontinued Medications Sodium Chloride (Normal Saline 0.9%) 1,000 mls @ 1,000 mls/hr IV BOLUS ONE Stop: 11/16/19 17:14 Last Admin: 11/16/19 16:19 Dose: 1,000 mls/hr Documented by: JOHN Vital Signs Vital signs: Vital Signs - 8 hr 11/16/19 14:22 11/16/19 15:15 11/16/19 15:30 Temperature 97.2 F L Pulse Rate 62 65 62 Respiratory Rate 18 16 18 Blood Pressure 169/76 H Blood Pressure [Right Arm] 174/83 H 141/88 H Pulse Oximetry 99 11/16/19 16:00 11/16/19 16:35 11/16/19 17:36 Temperature Pulse Rate 61 61 70 Respiratory Rate 14 18 14 Blood Pressure Blood Pressure [Right Arm] 163/79 H 147/72 H 174/89 H Pulse Oximetry 11/16/19 18:51 11/16/19 19:25 Temperature Pulse Rate 58 L 62 Respiratory Rate 10 L 16 Blood Pressure Blood Pressure [Right Arm] 169/88 H 157/79 H Pulse Oximetry 100 98 <Coby Lyman MD - Last Filed: 11/23/19 08:09> Orders Ordered: Discontinued Medications Sodium Chloride (Normal Saline 0.9%) 1,000 mls @ 1,000 mls/hr IV BOLUS ONE Stop: 11/16/19 17:14 Last Admin: 11/16/19 16:19 Dose: 1,000 mls/hr Documented by: JOHN Vital Signs Vital signs: Vital Signs - 8 hr 11/16/19 14:22 11/16/19 15:15 11/16/19 15:30 Temperature 97.2 F L Pulse Rate 62 65 62 Respiratory Rate 18 16 18 Blood Pressure 169/76 H Blood Pressure [Right Arm] 174/83 H 141/88 H Pulse Oximetry 99 11/16/19 16:00 11/16/19 16:35 11/16/19 17:36 Temperature Pulse Rate 61 61 70 Respiratory Rate 14 18 14 Blood Pressure Blood Pressure [Right Arm] 163/79 H 147/72 H 174/89 H Pulse Oximetry 11/16/19 18:51 11/16/19 19:25 Temperature Pulse Rate 58 L 62 Respiratory Rate 10 L 16 Blood Pressure Blood Pressure [Right Arm] 169/88 H 157/79 H Pulse Oximetry 100 98 MDM - Dizziness <MATTHIEU Langston-BC - Last Filed: 11/16/19 20:55> Lab Data Result diagrams: 11/16/19 15:39 11/16/19 15:39 Labs: Lab Results 11/16/19 11/16/19 11/16/19 Range/Units 15:39 15:39 15:39 WBC 4.4 L (4.5-11.0) X10^3/uL RBC 3.63 L (4.0-5.2) X10^6/uL Hgb 12.0 (12.0-16.0) g/dL Hct 34.4 L (36-46) % MCV 94.7 (80-100) fL MCH 33.0 (26-34) PG MCHC 34.8 (30-36) % RDW 13.4 (11.6-14.8) % Plt Count 397 (150-400) X10^3/uL Neut % (Auto) 52.9 (50-75) % Lymph % (Auto) 34.1 (25-40) % [place] % (Auto) 10.3 (3-14) % Eos % (Auto) 1.8 L (2-4) % Baso % (Auto) 0.9 (0-2) % Neut # (Auto) 2300 (9725-8363) /uL Lymph # (Auto) 1500 (5436-8626) /uL [place] # (Auto) 500 (0-900) /uL Eos # (Auto) 100 (0-450) /uL Baso # (Auto) 0 (0-100) /uL PT 11.6 (10.1-12.7) SECONDS INR 1.0 (0.9-1.3) APTT 36 (26.4-36.2) SECONDS Sodium 139 (137-145) mmol/L Potassium 3.9 (3.4-5.1) mmol/L Chloride 102 (98-107) mmol/L Carbon Dioxide 28 (22-32) mmol/L BUN 12 (7-17) mg/dL Creatinine 0.60 (0.52-1.04) mg/dL Estimated GFR > 60.0 (>60) mL/min BUN/Creatinine Ratio 20.0 (6-22) Glucose 99 (80-110) mg/dL Calcium 9.4 (8.4-10.2) mg/dL Magnesium (1.6-2.3) mg/dL Total Bilirubin 0.3 (0.2-1.3) mg/dL AST 21 (14-36) IU/L ALT 17 (<35) IU/L Alkaline Phosphatase 109 (38-126) U/L Total Creatine Kinase 40 (30-135) U/L CK-MB (CK-2) TNP CK-MB (CK-2) Rel Index TNP Troponin I < 0.012 (0.01-0.034) ng/mL Total Protein 7.5 (6.3-8.2) g/dL Albumin 4.6 (3.5-5.0) g/dL Globulin 2.9 (1.7-4.1) g/dL Albumin/Globulin Ratio 1.6 (1.0-2.8) Lipase 124 (23-300) U/L // Range/Units 15:39 WBC (4.5-11.0) X10^3/uL RBC (4.0-5.2) X10^6/uL Hgb (12.0-16.0) g/dL Hct (36-46) % MCV (80-100) fL MCH (26-34) PG MCHC (30-36) % RDW (11.6-14.8) % Plt Count (150-400) X10^3/uL Neut % (Auto) (50-75) % Lymph % (Auto) (25-40) % [place] % (Auto) (3-14) % Eos % (Auto) (2-4) % Baso % (Auto) (0-2) % Neut # (Auto) (4153-4506) /uL Lymph # (Auto) (5598-7844) /uL [place] # (Auto) (0-900) /uL Eos # (Auto) (0-450) /uL Baso # (Auto) (0-100) /uL PT (10.1-12.7) SECONDS INR (0.9-1.3) APTT (26.4-36.2) SECONDS Sodium (137-145) mmol/L Potassium (3.4-5.1) mmol/L Chloride (98-107) mmol/L Carbon Dioxide (22-32) mmol/L BUN (7-17) mg/dL Creatinine (0.52-1.04) mg/dL Estimated GFR (>60) mL/min BUN/Creatinine Ratio (6-22) Glucose (80-110) mg/dL Calcium (8.4-10.2) mg/dL Magnesium 2.2 (1.6-2.3) mg/dL Total Bilirubin (0.2-1.3) mg/dL AST (14-36) IU/L ALT (<35) IU/L Alkaline Phosphatase (38-126) U/L Total Creatine Kinase (30-135) U/L CK-MB (CK-2) CK-MB (CK-2) Rel Index Troponin I (0.01-0.034) ng/mL Total Protein (6.3-8.2) g/dL Albumin (3.5-5.0) g/dL Globulin (1.7-4.1) g/dL Albumin/Globulin Ratio (1.0-2.8) Lipase (23-300) U/L Urine Dip Bedside Urine Glucose Negative Bedside Urine Bilirubin - Negative Bedside Urine Ketone - Negative Urine Specific [place] 1.005 Bedside Urine Occult Blood - Negative Bedside Urine pH 7.0 Bedside Urine Protein - Negative Bedside Urine Urobilinogen - Negative Bedside Urine Nitrite - Negative Bedside Urine Leukocytes - Negative Esterase Imaging Data CT scan - head: Radiologist's Impression: [address] [address] [address] Scan Report Signed Patient: Eileen Herrera LMR#: [id number] : 9Acct:[id number] Age/Sex: 59 / FDate of Service: 11/16/19 Loc: ED Accession Number: [id number] Procedure: CT head/brain wo con Ordering Provider: Ayanna Luke QUARTZ CUTTER- PROCEDURE: CT HEAD/BRAIN WO CON INDICATIONS: dizziness x6-8 days TECHNIQUE: Noncontrast 4.5 mm thick angled axial sections acquired from the foramen magnum to the vertex, with coronal and sagittal reformats. For radiation dose reduction, the following was used: automated exposure control, adjustment of mA and/or kV according to patient size. COMPARISON: None. FINDINGS: Image quality: Excellent. CSF spaces: Basal cisterns are patent. No extra-axial fluid collections. Ventricles are normal in size and shape. Brain: No midline shift. No intracranial masses or hemorrhage. Fernandes-white matter interface is normal. Skull and face: Calvarium and visualized facial bones are intact, without suspicious lesions. Sinuses: Visualized sinuses and mastoids are clear. IMPRESSION: Source of dizziness is not found. Dictated by: Jong Howe M.D. on 11/16/2019 at 17:09 Approved by: Jong Howe M.D. on 11/16/2019 at 17:09 Chest x-ray: Radiologist's Impression: [place] [address] XRay Report Signed Patient: Eileen Herrera LMR#: [id number] : 9At:[id number] Age/Sex: 59 / FDate of Service: 11/16/19 Loc: ED Accession Number: [id number] Procedure: XR chest 1V Ordering Provider: Coby Lyman MD PROCEDURE: XR CHEST 1V INDICATIONS: chest pain TECHNIQUE: One view of the chest was acquired. COMPARISON: None. FINDINGS: Surgical changes and devices: None. Lungs and pleura: Lungs are clear. No pleural effusions or pneumothorax. Mediastinum: Mediastinal contours appear normal. Heart size is normal. Bones and chest wall: No suspicious bony lesions. Overlying soft tissues appear unremarkable. IMPRESSION: No acute cardiopulmonary findings. Dictated by: Adilene Mitchell M.D. on 11/16/2019 at 14:19 Approved by: Adilene Mitchell M.D. on 11/16/2019 at 14:19 [facility] Narrative Medical decision making narrative: The patient is a 59-year-old female who prese nts with a chief complaint of 6 days of dizziness but is on and off with no exacerbating or alleviating factors. EKG was done, upon was negative, CT was taken out any intracranial abnormalities. The patient felt improved after IV fluids, she was able to ambulate around the emergency department in no acute distress. I did offer her meclizine, which she declined repeatedly. I discussed at length the importance of follow-up with primary care provider, pushing fluids and rest. Patient has no questions or concerns upon discharge and states understanding of return precautions of any acute concerns as well as follow-up care. <Coby Lyman MD - Last Filed: 11/23/19 08:09> Lab Data Labs: Lab Results 11/16/19 11/16/19 11/16/19 Range/Units 15:39 15:39 15:39 WBC 4.4 L (4.5-11.0) X10^3/uL RBC 3.63 L (4.0-5.2) X10^6/uL Hgb 12.0 (12.0-16.0) g/dL Hct 34.4 L (36-46) % MCV 94.7 (80-100) fL MCH 33.0 (26-34) PG MCHC 34.8 (30-36) % RDW 13.4 (11.6-14.8) % Plt Count 397 (150-400) X10^3/uL Neut % (Auto) 52.9 (50-75) % Lymph % (Auto) 34.1 (25-40) % [place] % (Auto) 10.3 (3-14) % Eos % (Auto) 1.8 L (2-4) % Baso % (Auto) 0.9 (0-2) % Neut # (Auto) 2300 (1870-4800) /uL Lymph # (Auto) 1500 (1327-6356) /uL [place] # (Auto) 500 (0-900) /uL Eos # (Auto) 100 (0-450) /uL Baso # (Auto) 0 (0-100) /uL PT 11.6 (10.1-12.7) SECONDS INR 1.0 (0.9-1.3) APTT 36 (26.4-36.2) SECONDS Sodium 139 (137-145) mmol/L Potassium 3.9 (3.4-5.1) mmol/L Chloride 102 (98-107) mmol/L Carbon Dioxide 28 (22-32) mmol/L BUN 12 (7-17) mg/dL Creatinine 0.60 (0.52-1.04) mg/dL Estimated GFR > 60.0 (>60) mL/min BUN/Creatinine Ratio 20.0 (6-22) Glucose 99 (80-110) mg/dL Calcium 9.4 (8.4-10.2) mg/dL Magnesium (1.6-2.3) mg/dL Total Bilirubin 0.3 (0.2-1.3) mg/dL AST 21 (14-36) IU/L ALT 17 (<35) IU/L Alkaline Phosphatase 109 (38-126) U/L Total Creatine Kinase 40 (30-135) U/L CK-MB (CK-2) TNP CK-MB (CK-2) Rel Index TNP Troponin I < 0.012 (0.01-0.034) ng/mL Total Protein 7.5 (6.3-8.2) g/dL Albumin 4.6 (3.5-5.0) g/dL Globulin 2.9 (1.7-4.1) g/dL Albumin/Globulin Ratio 1.6 (1.0-2.8) Lipase 124 (23-300) U/L // Range/Units 15:39 WBC (4.5-11.0) X10^3/uL RBC (4.0-5.2) X10^6/uL Hgb (12.0-16.0) g/dL Hct (36-46) % MCV (80-100) fL MCH (26-34) PG MCHC (30-36) % RDW (11.6-14.8) % Plt Count (150-400) X10^3/uL Neut % (Auto) (50-75) % Lymph % (Auto) (25-40) % [place] % (Auto) (3-14) % Eos % (Auto) (2-4) % Baso % (Auto) (0-2) % Neut # (Auto) (5710-3609) /uL Lymph # (Auto) (2679-0072) /uL [place] # (Auto) (0-900) /uL Eos # (Auto) (0-450) /uL Baso # (Auto) (0-100) /uL PT (10.1-12.7) SECONDS INR (0.9-1.3) APTT (26.4-36.2) SECONDS Sodium (137-145) mmol/L Potassium (3.4-5.1) mmol/L Chloride (98-107) mmol/L Carbon Dioxide (22-32) mmol/L BUN (7-17) mg/dL Creatinine (0.52-1.04) mg/dL Estimated GFR (>60) mL/min BUN/Creatinine Ratio (6-22) Glucose (80-110) mg/dL Calcium (8.4-10.2) mg/dL Magnesium 2.2 (1.6-2.3) mg/dL Total Bilirubin (0.2-1.3) mg/dL AST (14-36) IU/L ALT (<35) IU/L Alkaline Phosphatase (38-126) U/L Total Creatine Kinase (30-135) U/L CK-MB (CK-2) CK-MB (CK-2) Rel Index Troponin I (0.01-0.034) ng/mL Total Protein (6.3-8.2) g/dL Albumin (3.5-5.0) g/dL Globulin (1.7-4.1) g/dL Albumin/Globulin Ratio (1.0-2.8) Lipase (23-300) U/L Urine Dip Bedside Urine Glucose Negative Bedside Urine Bilirubin - Negative Bedside Urine Ketone - Negative Urine Specific [place] 1.005 Bedside Urine Occult Blood - Negative Bedside Urine pH 7.0 Bedside Urine Protein - Negative Bedside Urine Urobilinogen - Negative Bedside Urine Nitrite - Negative Bedside Urine Leukocytes - Negative Esterase Discharge Plan Departure Patient Disposition: Home Clinical Impression: Dizziness Discharge Date/Time: 11/16/19 19:33 Instructions: DI for Vertigo, DI for Dizziness-Nonvertigo Activity Restrictions/Additional Instructions: Thank you for trusting us with your care today Today we did EKG, lab work, CT scan. Everything came back normal. Please push fluids and rest. Please follow-up with primary care provider in the next few days Please come back to the emergency department for any acute concerns such as concern of heart attack or stroke Prescriptions: No Action citalopram 20 mg tablet 40 mg PO DAILY Qty: 180 RF: 1 aspirin 81 mg Tablet,Delayed Release (Dr/Ec) 81 mg PO BID RF: 0 ranitidine HCl 150 mg tablet 150 mg PO BID RF: 0 methocarbamol 750 mg tablet 750 mg PO QID PRN (Reason: Spasms) RF: 0 fluticasone propionate [Flonase Allergy Relief] 50 mcg/actuation [place],Suspension 1 spray INTRANASAL DAILY PRN (Reason: Congestion) RF: 0 hydrocodone-acetaminophen 5-325 mg Tablet 1 tab PO Q6HR PRN (Reason: Pain, Moderate (4-6)) Qty: 60 RF: 0 ibuprofen 400 mg tablet 400 mg PO Q4H PRN (Reason: Pain) RF: 0 acetaminophen [Tylenol Extra Strength] 500 mg tablet 500 mg PO Q4H PRN (Reason: Pain) RF: 0 Referrals: Salvador Schmidt MD [Physician] -
--- NOTE | 2020-01-07 19:45 | PC.NURSE ---
late entry: IV NS started 1619, completed @ 1900. 1000 cc infused. No ill effect.
== END 2019-11-16 19:33 | disposition home or self-care (01) ==
PROVIDERS: Emergency Medicine; Emergency Provider Nurse Practitioner Family
DX: R42 Dizziness and giddiness (principal); R07.9 Chest pain, unspecified
CPT/HCPCS: 36415; 70450; 71045; 80053; 81003; 82550; 83690; 83735; 84484; 85025; 85610; 85730; 93005; 96360; 96361; 99285

== ENCOUNTER → 2020-08-09 15:09 | Outpatient (CLI) | payer BC, OTHER, SELFPAY ==
[2020-07-25 10:48] VITALS: BMI 27.1
[2020-08-09 16:10] LABS: Add Manual Diff / Slide Review NO; Basophils Absolute Auto 0 /uL (0-100); Basophils Percent Auto 0.4 % (0-2); Eosinophils Absolute Auto 100 /uL (0-450); Eosinophils Percent Auto 1.9 % (2-4); Hematocrit 37.2 % (36-46); Hemoglobin 12.8 g/dL (12.0-16.0); Lymphocytes Absolute Auto 2200 /uL (1100-4500); Mean Corpuscular HGB Conc 34.5 % (30-36); Mean Corpuscular Hemoglobin 32.9 PG (26-34); Mean Corpuscular Volume 95.4 fL (80-100); Monocytes Absolute Auto 600 /uL (0-900); Monocytes Percent Auto 8.4 % (3-14); Neutrophils Absolute Auto 4300 /uL (1500-7000); Neutrophils Percent Auto 59.3 % (50-75); Platelet Count 251 X10^3/uL (150-400); White Blood Cell Count 7.3 X10^3/uL (4.5-11.0)
[2020-08-09 16:26] LABS: HEMOLYSIS < 15 (0-50); Iron 100 ug/dL (37-170)
[2020-08-09 16:28] LABS: Alanine Aminotransferase 16 IU/L (<35); Albumin 4.3 g/dL (3.5-5.0); Albumin Globulin Ratio 1.5 (1.0-2.8); Alkaline Phosphatase 101 U/L (38-126); Aspartate Aminotransferase 20 IU/L (14-36); BUN Creatinine Ratio 20.6 (6-22); Bilirubin Total 0.3 mg/dL (0.2-1.3); Blood Urea Nitrogen 14 mg/dL (7-17); Calcium 9.5 mg/dL (8.4-10.2); Carbon Dioxide 33 mmol/L (22-32); Chloride 100 mmol/L (98-107); Estimated Glomerular Filt Rate > 60.0 mL/min (>60); Globulin 2.8 g/dL (1.7-4.1); Glucose 92 mg/dL (80-110); HEMOLYSIS < 15 (0-50); Potassium 4.6 mmol/L (3.4-5.1); Sodium 140 mmol/L (137-145); Total Protein 7.1 g/dL (6.3-8.2)
[2020-08-09 16:37] LABS: Percent Iron Saturation 28 % (15-50); Total Iron Binding Capacity 359 ug/dL (265-497); Transferrin 293 mg/dL (206-381)
[2020-08-09 16:58] LABS: TSH w/ Reflex to FT4 1.34 uIU/mL (0.47-4.68)
== END ==
PROVIDERS: PCP Internal Medicine; Referring Provider Internal Medicine; Visit Provider Internal Medicine
DX: I10 Essential (primary) hypertension (principal); L65.9 Nonscarring hair loss, unspecified
CPT/HCPCS: 36415; 80053; 83540; 83550; 84443; 85025

== ENCOUNTER → 2020-08-24 12:36 | Outpatient (CLI) | payer BC, OTHER, SELFPAY ==
[2020-07-25 10:48] VITALS: BMI 27.1
[2020-08-24 13:02] LABS: Add Manual Diff / Slide Review NO; Basophils Absolute Auto 100 /uL (0-100); Basophils Percent Auto 0.8 % (0-2); Eosinophils Absolute Auto 100 /uL (0-450); Eosinophils Percent Auto 2.1 % (2-4); Hematocrit 36.6 % (36-46); Hemoglobin 12.6 g/dL (12.0-16.0); Lymphocytes Absolute Auto 1900 /uL (1100-4500); Lymphocytes Percent Auto 31.3 % (25-40); Mean Corpuscular HGB Conc 34.5 % (30-36); Mean Corpuscular Volume 95.5 fL (80-100); Monocytes Absolute Auto 500 /uL (0-900); Monocytes Percent Auto 8.7 % (3-14); Neutrophils Absolute Auto 3400 /uL (1500-7000); Neutrophils Percent Auto 57.1 % (50-75); Platelet Count 247 X10^3/uL (150-400); Red Blood Cell Count 3.83 X10^6/uL (4.0-5.2); Red Cell Distribution Width 12.8 % (11.6-14.8)
== END ==
PROVIDERS: PCP Internal Medicine; Referring Provider Orthopaedic Surgery; Visit Provider Orthopaedic Surgery
DX: Z01.818 Encounter for other preprocedural examination (principal); Z01.812 Encounter for preprocedural laboratory examination
CPT/HCPCS: 36415; 85025; 93005

== ENCOUNTER → 2020-08-27 15:21 | Outpatient (CLI) | payer BC, OTHER, MEDICAID, SELFPAY ==
[2020-07-25 10:48] VITALS: BMI 27.1
[2020-08-28 07:38] LABS: COVID19 Sendout Not Detected (Not Detect)
== END ==
PROVIDERS: PCP Internal Medicine; Visit Provider Physician Assistant
DX: Z11.59 Encounter for screening for other viral diseases (principal)
CPT/HCPCS: 87635

== ENCOUNTER 2020-08-30 16:45 | Observation (INO) | payer BC, OTHER, MEDICAID, SELFPAY ==
[2020-07-25 10:48] VITALS: BMI 27.1
[2020-08-23 12:25] VITALS: BMI 26.1
[2020-08-30] VITALS (15 sets, daily range): BP systolic 99–171; BP diastolic 41–79; PULSE 40–76; RESP 12–20; TEMP 35.8–37.1; O2SAT 95–100; BMI 27.3
--- NOTE | 2020-08-30 07:00 | DI.RAD.S_ITS ---
PROCEDURE: XR HIP W PEL IF DONE LT 2V INDICATIONS: left post operative hip TECHNIQUE: AP pelvis. COMPARISON: [facility], CR, XR PELVIS WITH LATERAL HIP LEFT, 08/03/2020, 10:22. [facility], CR, XR HIP W PEL IF DONE BRANDY 3TO4V, 05/24/2019, 11:57. FINDINGS: Bones: Patient is status post interval left hip arthroplasty, with hardware components in expected positions. The hip joint appears congruent. The visualized bony structures appear intact. Stable postsurgical changes from right hip arthroplasty. Soft tissues: Overlying postoperative changes are noted. No suspicious soft tissue densities. IMPRESSION: Status post left hip arthroplasty with expected postsurgical changes. Dictated by: Tom Higginbotham M.D. on 08/30/2020 at 10:45 Approved by: oTm Higginbotham M.D. on 08/30/2020 at 10:46
[2020-08-30] MEDS: CELECOXIB 200 MG CAPSULE PO (08:07)
[2020-08-30] MEDS: PREGABALIN 75 MG CAPSULE PO (08:11)
[2020-08-30] MEDS: LACTATED RINGERS 1,000 ML 42 ML IV (08:12)
--- NOTE | 2020-08-30 08:34 | PM.PREOP ---
Pre-operative Note COVID-19 COVID-19 status: Negative Result date/Date tested (Pos, Neg/Pending): 08/28/20 Interval Note History & Physical reviewed/Exam performed by Physician: Yes Changes to H&P: No
[2020-08-30] MEDS: CEFAZOLIN 2 GM/100 ML FROZ.PIGGY IV (08:46)
[2020-08-30] MEDS: TRANEXAMIC ACID 1,000 MG VIAL 2000 MG INJ ×2 (09:22→10:15)
[2020-08-30] MEDS: MORPHINE 4 MG/ML INJ INJ (09:23)
[2020-08-30] MEDS: ROPIVACAINE 0.5% PF 5 MG/ML 20ML VIAL 60 ML INJ (09:23)
[2020-08-30] MEDS: KETOROLAC 30 MG/ML VIAL IV (09:23)
--- NOTE | 2020-08-30 10:41 | P.OP_ITS ---
Operative Date/Time/Diagnoses Date of procedure: 08/30/20 Time of procedure: 10:46 Pre-op diagnosis: Left hip degenerative joint disease Post-op diagnosis: same Procedure & Clinicians Procedure: Left total hip arthroplasty (CPT code 85328 with program assistant) Same procedure as scheduled: Yes Indications: Patient is an 60-year-old female with severe left hip DJD. The patient has pain with activities and at rest, limited ambulation and activity tolerance, difficulties with ADLs, and failure of conservative treatment. We have discussed the nature of condition, treatment options, risks and benefits, and patient elects to proceed with total hip arthroplasty and gives informed consent. Surgeon: Zen Katz Lubrication Technician: Higinio Arceo Anesthesia Type: General and Spinal Operative Notes Closure Type: primary Specimen(s): none sent Prosthetic devices, grafts, tissues, transplants, or devices: Acetabulum: Lam and Nephew R3 acetabular component size 54 mm Femoral component: Lam and Nephew Anthology stem size 7 with standard offset Femoral head: 36 mm + 0 Oxinium Estimated Blood Loss (mL): 100 Blood products transfused: none Procedure in detail: After satisfaction induction of anesthetic, and administration of IV antibiotics, the patient was positioned in the lateral decubitus position with all bony prominences well padded and pelvic position secured using a hip wax coating machine tender positioning device. Left hip and lower extremity prepped and draped in the usual sterile fashion, 1st dose of intravenous tranexamic acid was administered, then a longitudinal incision was created centered over the greater trochanter and carried sharply through the skin and subcutaneous tissues down to the fascia gely which was divided longitudinally and retracted with a Charnley retractor. External rotators visualize, cut, tagged, and retracted posteriorly, then the capsule was cut in a T-type fashion with the corners tagged and retracted. Hip was dislocated and femoral neck cut made according to preoperative templating. Acetabular retractors then placed, and the acetabular labrum and osteophytes were excised. The acetabulum was then sequentially reamed to 53 mm with an excellent circumferential ream and fit with the trial. The trial component was removed and a permanent size 54 mm Lam and Nephew R3 acetabular component was selected, positioned, and impacted with satisfactory position and fixation achieved. Permanent liner was then inserted with the elevated lip directed posteriorly. Soft tissue then removed off the lateral femoral neck in the lateral neck was entered using a box osteotome. T- handled reamers placed down the canal followed by sequential broaching to 7 with the final broach left in place for trial reduction which demonstrated excellent leg length, range of motion, and stability characteristics with a 36 mm +0 trial ball. The trial and broach were removed, and a permanent size 7 Lam and Nephew Anthology stem was selected and inserted with excellent position and fixation achieved. Another trial reduction yielded the above characteristics so the trial ball was exchanged for a permanent 36 mm +0 Oxinium ball. The hip was irrigated and reduced and excellent leg length range of motion and stability characteristics were achieved and maintained. Periarticular tissues were infiltrated with ropivacaine, morphine, and Toradol. The hip was copiously irrigated, and the capsule repaired with #2 Ethibond, and the piriformis was repaired back to the greater trochanter with the same. Fascia gely closed with interrupted #1 Ethibond sutures, and the subcutaneous tissues were closed in 2 layers of 0 Vicryl and 2 0 Vicryl. Skin was closed with andrew and sterile dressings applied. Second dose of tranexamic acid was administered intravenously, and the anesthetic was terminated. Complications: none Post-operative Condition: stable Disposition: PACU Plan for aftercare: Patient will be admitted to the acute care [facility], and anticipate discharge on postop day 1 with follow-up in office in 10-14 days. Outpatient physical therapy will be arranged and patient will continue to obser ve posterior hip precautions. Patient will continue use of postoperative aspirin for DVT prophylaxis.
[2020-08-30] MEDS: LACTATED RINGERS 1,000 ML 125 ML IV ×2 (11:33→19:21)
[2020-08-30] MEDS: ACETAMINOPHEN 325 MG TABLET PO (16:09)
--- NOTE | 2020-08-30 16:35 | PT.IIE ---
Current Diagnoses Unilateral primary osteoarthritis, left hip (08/30/20) Surgery Performed Operation Date: 08/30/20 08:45 Actual Procedures p Total Hip Arthroplasty(Left) - Zen Katz MD Surgical History (Last Updated 08/23/20 @ 12:22 by Emmy Mcgee RN) History of total hip arthroplasty (Inactive) History of total right hip arthroplasty (Acute 10/26/19) Hx of breast augmentation (Acute ~1987) Hx of dilation and curettage (Acute ~1978) Status post total hip replacement, right (Acute) Medical History (Last Updated 08/02/20 @ 15:54 by Jaime Soler DO) Abscess (Acute ~1993) Degenerative joint disease (DJD) of hip (Acute) Degenerative joint disease of both hips (Chronic) Essential hypertension (Chronic) Gastroesophageal reflux disease without esophagitis (Chronic 03/17/14) Hypertension (Chronic) Melanoma (Chronic) Menopausal disorder (Chronic 03/17/14) Other seasonal allergic rhinitis (Chronic 03/17/14) Recurrent major depressive disorder, in full remission (Chronic 03/17/14) Ventricular premature beats (Chronic 02/02/18) Physical Therapy Inpatient Evaluation/Re-Eval M1 PT/OT-IP Prior Functional Status Start: 08/30/20 14:11 Freq: NEEDED Status: Active Protocol: Document 08/30/20 16:07 DE (Rec: 08/30/20 16:27 DE [id number]) Medical Review Prior Functional Status Medical History Reviewed Yes Diet/Fluid Consistency Regular Communication WNL. No deficits noted. Pt is able to make needs known. Mobility and Gait Pt reports she was independent for all activities prior to the onset of L hip pain. She was able to perform running, walking, and yoga. Activities of Daily Living and IADL's Pt was independent for all ADLs at baseline. Prior Functional Level (Other details) Independent at baseline. Social History Household Members significant other Living Arrangements House Number of Floors (Floors) One Floor Number of Stairs To Enter/Railing? 2 DRAGAN with no railing Home Environment Standard Height Toilet,Walk in Shower Home Equipment Front Wheel Walker,Straight Cane,Raised Toilet Seat Without Armrests,Shower Seat without Backrest,Hand Held Shower,Long Handled Sponge, Long Handled Shoe Horn,Washing Machine Mechanic ,Grab Bars Near Toilet,Grab Bars In Shower Employment Status [employer] Employed Additional Social History Comment Works as property maintenance supervisor at . Lives with Wojciech, who is able to assist at home. Joelle Kingsley, PT has reviewed and approved SPT Easton Lin's note. M2 PT-IP Current Condition Start: 08/30/20 14:11 Freq: NEEDED Status: Active Protocol: Document 08/30/20 16:15 (Rec: 08/30/20 16:35 [id number]) Physical Therapy Current Condition Current Condition Evaluation Date 08/30/20 Treatment Diagnosis L DEVIKA posterior approach, difficulty in walking Onset Date 08/30/20 Precautions Posterior Hip Precautions No Hip Flexion > 90 degrees,No Hip Internal Rotation,No Hip Adduction Weight Bearing Status Weight Bearing Status Weight Bear as Tolerated M3 PT-IP Subjective Start: 08/30/20 14:11 Freq: NEEDED Status: Active Protocol: Document 08/30/20 16:15 (Rec: 08/30/20 16:35 [id number]) Subjective Physical Therapy Visit Type Type Initial Evaluation Visit Start Time 14:36 Visit Stop Time 15:15 Total Visit Minutes 39 Notes evaluated with SPT Easton. Wojciech at bedside. Number of DRAFTER CASTINGS Visits 0 Physical Therapy Visit Comments Patient Comments I want to try if i can stand up Patient Goals To return home once she is medically stable. Therapy Pain Assessment Pain When Pain Assessed During Mobility Pain Present Pain Present Denied Pain M4 PT-IP Mobility and Gait Start: 08/30/20 14:11 Freq: NEEDED Status: Active Protocol: Document 08/30/20 16:15 (Rec: 08/30/20 16:35 [id number]) PT-Bed Mobility Assessment Supine to Sit Supine to Sit Contact Guard Assistance, Minimal Assistance,Bedrails Sit to Supine Sit to Supine Minimal Assistance,Bedrails Scooting Scooting to Edge of Bed Contact Guard Assistance PT-Transfer Assessment Sit to and From Stand Sit to and from Stand Minimal Assistance,Use of Upper Extremities Equipment Transfer Assistive Device Gait Belt,Front Wheeled Walker Orthotic/Prosthetic Devices or Brace: No Transfers Transfer Destination Bed Transfer Ability Level of Assist Minimal Assistance,Use of Upper Extremities Comments Mobility Comments Pt was in bed upon PT and SPT arrival. Spouse Wojciech at bedside. BP 141/74. Pt AXO4 and able to perform supine leg press against PT but noticed some weakness on L. pt agreed to mombilize with PT as aleta. She needed min A and cues to use Rankle to lift her LLE for pivoting. She used bedrail for support and slowly pivoted LEs towards RLE. She was able to scoot to EOB with CGA. Pt then stood up with mostly pushed off from UEs and RLE. She was able to stand upright and perform lateral weight shift. Her L knee buckled but was able to recover. Pt then suddently felt very lightheaded and requested to sit down. Needed min A for transferring LEs to bed. Pt appeared to be pale with cold sweat. BP in supine 63/45. trendelenberg position activated. BP 94/52 after 3 mins , and 110/52 at 6th min pierce. Pt reports she felt better and normal again. Repositioned bed to level after and call light placed within reach. Notified nursing . Gait Assessment Comments Gait Comments did not assess d/t orthostatic hypotension Stair Climbing Assessment Comments Stair Climbing Comments did not assess d/t orthostatic hypotension PT-Balance Assessment Sitting Balance and Reactions Static Sitting Balance Ability Normal Dynamic Sitting Balance Ability Good Standing Balance and Reactions Static Standing Balance Ability Fair Dynamic Standing Balance Ability Fair Device Used FWW M5 PT-IP Objective Assessments Start: 08/30/20 14:11 Freq: NEEDED Status: Active Protocol: Document 08/30/20 16:15 (Rec: 08/30/20 16:35 [id number]) Orientation Orientation/Cognition Level of Alertness Alert Orientation Name,Age,Birthday,Month,Date, Year,Day of Week,Place, Situation Language Function Ability No Deficits Noted Safety Awareness Understands Safety Issues Memory Description No Deficits Noted Gross Range of Motion Upper Extremity ROM Assessment Within Functional Limits Lower Extremity ROM Assessment Left Impaired Impairments unable to perform active SLR Strength Upper Extremity Strength Assessment Within Functional Limits Lower Extremity Strength Assessment Left Impaired Hip 3+/5 Knee 3+/5 Comments Strength Comments unable to perform active SLR Sensation Assessment Sensation Gross Sensation Left UE Impaired Sensation Description Numbness Comments Sensation Comments numbness at L groin M6 PT-IP Treatment Start: 08/30/20 14:11 Freq: NEEDED Status: Active Protocol: Document 08/30/20 16:15 (Rec: 08/30/20 16:35 [id number]) Physical Therapy Treatment Exercises Exercises Ankle Pumps,Gluteal Sets,Quad Sets,Heel Slides Education Education Provided Precautions,Weight Bearing Status,Post-Op Packet,Safety M7 PT-IP Assessment and Plan Start: 08/30/20 14:11 Freq: NEEDED Status: Active Protocol: Document 08/30/20 16:15 HH (Rec: 08/30/20 16:35 HH [id number]) PT Summary Assessment and Plan Potential Rehabilitation Potential Excellent Status of Condition at Evaluation Evolving Summary Impairments Pain,ROM,Strength,Balance,Bed Mobility,Transfers,Gait, Activity Tolerance Assessment Summary This is a low complexity evaluation for this 60 yo female with POD0 L DEVIKA ( posterior approach). Pt recently had a RTHA in October and she recovered well from it. 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 Upon assessment, pt experienced orthostatic hypotension down to 63/45 after sit to stand and required to position her in trendelenberg for 6 mins to recover. Pt explained it happended for her RTHA as well . Will cont monitor pt progress but expect her to be d/c home with assistance and outpatient PT. Goals Transfer Goal Standby Assistance,Front Wheeled Walker Gait Goal Standby Assistance,Front Wheel Walker Gait Distance 100 Other Goals 2 DRAGAN no rails Days to Meet Goals 2 Frequency of Treatment Frequency Of Treatment Twice a Day Treatment Plan Physical Therapy Treatment Plan Bed Mobility Training,Transfer Training,Gait Training, Therapeutic Exercise,Balance Retraining,Post Op Education, Discharge Planning,Hot or Cold Pack,Neuromuscular Re-ed Other Recommendations and Next Treatment mobility as aleta Focus 2STE without rails check orthostatic Recommendations To Nursing Amount of Assist Needed 1 Person Assist Discharge Recommendations PT Discharge Recommendations Home with Assistance, Outpatient PT Transportation Needs at Discharge Private Vehicle
[2020-08-30] MEDS: HYDROCODONE/ACET 5/325 TABLET 1 TAB PO ×2 (17:50→19:15)
[2020-08-30] MEDS: ASPIRIN EC 81 MG TABLET PO (22:14)
[2020-08-30] MEDS: DOCUSATE 100 MG CAPSULE PO (22:15)
--- NOTE | 2020-08-30 22:29 | PC.NURSE ---
patient ambulated with with PT and she got dizzy, light headed and hot flashes BP 63/45. pt got back in bed BP up to 110/52. IVF infusing. patient's Lt. thigh is numb. pt able wiggle toes. 2200: patient ambulated to the BR, [id number]. denied any dizziness. VSS.
[2020-08-31] VITALS: BP 119/64; PULSE 60; RESP 16; TEMP 36.7; O2SAT 96
[2020-08-31] MEDS: ACETAMINOPHEN 325 MG TABLET PO ×2 (00:18→08:04)
[2020-08-31] MEDS: hydrOXYzine pamoate 25 MG CAPSULE PO (00:19)
[2020-08-31] MEDS: methocarbamoL 500 MG TABLET 750 MG PO ×2 (00:19→08:05)
[2020-08-31] MEDS: HYDROCODONE/ACET 5/325 TABLET 1 TAB PO ×2 (00:19→08:03)
[2020-08-31 05:55] VITALS: BP 132/58; PULSE 67; RESP 16; TEMP 36.4; O2SAT 97
[2020-08-31 06:31] LABS: Hematocrit 25.9 % (36-46); Hemoglobin 9.1 g/dL (12.0-16.0)
--- NOTE | 2020-08-31 06:46 | PC.NURSE ---
Late entry for 10/7 day shift- Report rec'd from DULCE Kerns in PACU at 1056. Pt arrived to room 213 at 1106 via bed. Pt A&OX4, oriented to call light, bed functions. Pt denied any pain, discomfort, shortness of breath or nausea. Pt wanted only water at this time. Left hip bulky dressing CDI, ice pack in place. PPP, Left foot cooler to touch compared to right foot. Pt able to shift hips, not able to bend at knees of ankles or wiggle toes yet. BLE numbness from below groin area to feet. Calf SCD's in place. Pt able to properly demonstrate use of incentive spirometer. O2 sat 97% on RA. Pt's S.O. Bill in room to visit. Call light within reach.
[2020-08-31 07:57] VITALS: BP 123/69; PULSE 67; RESP 16; TEMP 36.4; O2SAT 95
[2020-08-31] MEDS: CELECOXIB 200 MG CAPSULE PO (08:03)
[2020-08-31] MEDS: ASPIRIN EC 81 MG TABLET PO (08:03)
[2020-08-31] MEDS: CITALOPRAM 10 MG TABLET 20 MG PO (08:04)
[2020-08-31] MEDS: FAMOTIDINE 20 MG TABLET 40 MG PO (08:04)
[2020-08-31] MEDS: DOCUSATE 100 MG CAPSULE PO (08:04)
--- NOTE | 2020-08-31 10:26 | PT.IPTN ---
Current Diagnoses Unilateral primary osteoarthritis, left hip (08/30/20) Surgery Performed Operation Date: 08/30/20 08:45 Actual Procedures p Total Hip Arthroplasty(Left) - Zen Katz MD Physical Therapy Treatment Note M2 PT-IP Current Condition Start: 08/30/20 14:11 Freq: NEEDED Status: Discharge Protocol: Document 08/30/20 16:15 HH (Rec: 08/30/20 16:35 HH [id number]) Physical Therapy Current Condition Current Condition Evaluation Date 08/30/20 Treatment Diagnosis L DEVIKA posterior approach, difficulty in walking Onset Date 08/30/20 Precautions Posterior Hip Precautions No Hip Flexion > 90 degrees,No Hip Internal Rotation,No Hip Adduction Weight Bearing Status Weight Bearing Status Weight Bear as Tolerated M3 PT-IP Subjective Start: 08/30/20 14:11 Freq: NEEDED Status: Discharge Protocol: Document 08/31/20 09:44 KS (Rec: 08/31/20 12:35 KS [id number]) Subjective Physical Therapy Visit Type Type Treatment Note Visit Start Time 09:44 Visit Stop Time 10:26 Total Visit Minutes 42 Notes Pts at bedside. Physical Therapy Visit Comments Patient Comments Pt agreeable to work w/ therapy. Patient Goals To return home once she is medically stable. M4 PT-IP Mobility and Gait Start: 08/30/20 14:11 Freq: NEEDED Status: Discharge Protocol: Document 08/31/20 09:44 KS (Rec: 08/31/20 12:35 KS [id number]) PT-Bed Mobility Assessment Supine to Sit Supine to Sit Standby Assistance,Head of Bed Elevated Sit to Supine Sit to Supine Standby Assistance,1 Person Assistance Scooting Scooting to Edge of Bed Standby Assistance PT-Transfer Assessment Sit to and From Stand Sit to and from Stand Contact Guard Assistance,1 Person Assistance,Use of Upper Extremities Equipment Transfer Assistive Device Gait Belt,Front Wheeled Walker Orthotic/Prosthetic Devices or Brace: No Transfers Transfer Destination Bed Transfer Ability Level of Assist Standby Assistance,Contact Guard Assistance,1 Person Assistance,Use of Upper Extremities Comments Mobility Comments Pt in bed upon arrival from therapy w/ in room. Pt SBA for sup<>sit w/ HOB slightly elevated and SBA for scooting to EOB. Pt able to recall 3/3 precautions. Pt sit <>stand SBA w/ FWW. Pt then ambulated in hallway w/ FWW and SBA ~150 ft to stairs and ascended descended platform step w/ FWW SBA w/ cues fpr sequencing and FWW management. Pt ambulated addtional ~150 ft back to room w/ FWW SBA w/ cues for equal step length. Pt returned to bed sit<>sup SBA w/ use of RLE to guide LLE into bed. Pt then reveiwed LE strengthening exercises including ankle pumps, quad sets, glute sets, heel slides, and sup abduction which pt tolerated well. Pt left in bed w/ all needs in reach. Gait Assessment Gait Gait Assistance Required: Standby Assistance,1 Person Assist Distance (Feet) 300 Able to Maintain Weight Bearing Status Yes During Gait Assistive Devices Assistive Device Front Wheeled Walker Orthotic/Prosthetic Devices or Brace: No Gait Deviations General Gait Pattern Antalgic,Decreased Stride Length,Decreased Feet Clearance,Lateral Trunk Lean Factors Limiting Gait Function Factors Limiting Gait Function Decreased Activity Tolerance, Decreased Sensation,Decreased Strength,Limited Range of Motion,Pain Comments Gait Comments Pt ambulated ~300 ft w/ FWW and SBA. Pt needed min cues for equal step length and heel toe walking. Her gait improved w/ distance. Pt states she has FWW for home use. Stair Climbing Assessment Evaluation Level of Assist On Stairs Standby Assistance,1 Person Assistance Devices Stair Climbing Assistive Devices Front Wheel Walker Technique/Endurance Stair Climbing Direction Ascend and Descend Stair Climbing Technique Step to Step Number of Steps Climbed 1 Stair Climbing Set # Repetitions (reps) 2 Comments Stair Climbing Comments Pt ascended/descended 1 platform step x2 w/ FWW and SBA w/ cues for leg sequencing and FWW management. Pt states she can fit FWW fully on steps at home. PT-Balance Assessment Sitting Balance and Reactions Static Sitting Balance Ability Normal Dynamic Sitting Balance Ability Good Standing Balance and Reactions Static Standing Balance Ability Fair Dynamic Standing Balance Ability Fair Device Used FWW M5 PT-IP Objective Assessments Start: 08/30/20 14:11 Freq: NEEDED Status: Discharge Protocol: Document 08/30/20 16:15 HH (Rec: 08/30/20 16:35 HH [id number]) Orientation Orientation/Cognition Level of Alertness Alert Orientation Name,Age,Birthday,Month,Date, Year,Day of Week,Place, Situation Language Function Ability No Deficits Noted Safety Awareness Understands Safety Issues Memory Description No Deficits Noted Gross Range of Motion Upper Extremity ROM Assessment Within Functional Limits Lower Extremity ROM Assessment Left Impaired Impairments unable to perform active SLR Strength Upper Extremity Strength Assessment Within Functional Limits Lower Extremity Strength Assessment Left Impaired Hip 3+/5 Knee 3+/5 Comments Strength Comments unable to perform active SLR Sensation Assessment Sensation Gross Sensation Left UE Impaired Sensation Description Numbness Comments Sensation Comments numbness at L groin M6 PT-IP Treatment Start: 08/30/20 14:11 Freq: NEEDED Status: Discharge Protocol: Document 08/31/20 09:44 KS (Rec: 08/31/20 12:35 KS [id number]) Physical Therapy Treatment Exercises Exercises Ankle Pumps,Gluteal Sets,Quad Sets,Heel Slides,Supine Hip Abduction Education Education Provided Precautions,Weight Bearing Status,Post-Op Packet,Safety M7 PT-IP Assessment and Plan Start: 08/30/20 14:11 Freq: NEEDED Status: Discharge Protocol: Document 08/31/20 09:44 KS (Rec: 08/31/20 12:35 KS [id number]) PT Summary Assessment and Plan Potential Rehabilitation Potential Excellent Status of Condition at Evaluation Evolving Summary Impairments Pain,ROM,Strength,Balance,Bed Mobility,Transfers,Gait, Activity Tolerance Progress Towards Goals Progressing Toward Goals Assessment Summary Pt tolerated ~300 ft ambulation, ther ex, transfers , and stair climbing well today. SBA for bed mobility, CGA for sit<>stand, SBA for stairs and ambulation. Pt needed min cues for equal step length and heel toe walking during ambulation and min cues for sequencing and FWW management when performing platform steps. Pt states she feels ready to go home and has outpatient physical therapy set up. Goals Transfer Goal Standby Assistance,Front Wheeled Walker Gait Goal Standby Assistance,Front Wheel Walker Gait Distance 100 Other Goals 2 DRAGAN no rails Days to Meet Goals 2 Frequency of Treatment Frequency Of Treatment Twice a Day Treatment Plan Physical Therapy Treatment Plan Bed Mobility Training,Transfer Training,Gait Training, Therapeutic Exercise,Balance Retraining,Post Op Education, Discharge Planning,Hot or Cold Pack,Neuromuscular Re-ed Other Recommendations and Next Treatment mobility as aleta Focus 2STE without rails check orthostatic Recommendations To Nursing Amount of Assist Needed 1 Person Assist Discharge Recommendations PT Discharge Recommendations Home with Assistance, Outpatient PT Transportation Needs at Discharge Private Vehicle
--- NOTE | 2020-08-31 10:46 | P.PN_ITS ---
Subjective Subjective Date Patient Seen: 08/31/20 Interval history: 60 year old female who is POD#1 s/p left DEVIKA with Dr. Katz. Pain is well controlled with [place]. Attempted to work with PT yesterday and had an episode of orthostasis, was able to do some work with them prior. No complaints today. Exam Vital Signs (past 8 hours): - 08/31/20 05:55 08/31/20 07:57 Temperature 97.6 F 97.6 F Pulse Rate 67 67 Respiratory Rate 16 16 Blood Pressure 132/58 L 123/69 Pulse Oximetry 97 95 Oxygen Delivery Method Room Air Oxygen Flow Rate 0 Narrative Exam Narrative: 60 year old female resting in bed alert and oriented in no acute distress. Bulky dressing overlying the hip is clean and dry but not intact, with obvious failed attempts to reinforce overnight. Neurovascularly intact in distal extremity. Calves are soft. Objective Labs Result Diagrams: 08/31/20 05:59 Labs: Laboratory Results - last 24 hr 08/31/20 05:59 Hgb 9.1 L Hct 25.9 L Assessment & Plan Assessment & Plan narrative: Patient is POD#1 from DEVIKA doing well. She had orthostasis after her last DEVIKA which resolved POD#1 without intervention. Will hold her metoprolol for now. She will work with PT today. ASA 81mg for DVT prophylaxis. Likely discharge to home later today pending PT. Quality VTE Deep Vein Thrombosis/Pulmonary Embolism Present on Admission: No
--- NOTE | 2020-08-31 11:50 | PC.NURSE ---
Drsg removed due to pillowing/tape loosening; incision well-approximated with zipper; Aquacell applied per patient request for showering; c/m/s positive; mild pain with [place]; d/c instructions include f/u appt, rx medications
--- NOTE | 2020-08-31 15:20 | CM.IDA ---
Initial DCP Assessment Note Pt is a 60 yo female, resident of [place], now POD#1 from left DEVIKA surgery w/ Dr Katz PCP: Salvador Schmidt Payer: DERRICK Salgado/[employer] Reviewed chart, pt discussed in multidisciplinary rounds this morning. Therapy has cleared pt for return home w/family to assist and pt has planned for home, DC order from Ortho has already been initiated this morning. Patient is a service rig operator here at , [employer] and active at baseline, expected to make very good progress s/p hip surgery. Patient eager to return home. No needs expected from DC planning team although will remain available in case this changes today. ADRIANE Levy
== END 2020-08-31 11:59 | disposition home or self-care (01) ==
LOC: OR 08-31 11:02 → AC 08-31 11:02
PROVIDERS: Admitting Provider Physician Assistant Surgical; PCP Internal Medicine; Referring Provider Orthopaedic Surgery; Visit Provider Orthopaedic Surgery
PROC: 0SRB0JZ Replacement of Left Hip Joint with Synthetic Substitute, Open Approach (ICD-10-PCS; CPT 27130; principal; 2020-08-30 08:45)
DX: M16.12 Unilateral primary osteoarthritis, left hip (principal); I10 Essential (primary) hypertension
CPT/HCPCS: 27130; 36415; 73502; 85014; 85018; 97110; 97116; 97161; 97530; C1776; G0378; A9270; J0690; J1100; J1885; J2250; J2270; J2405; J2704; J3010

== ENCOUNTER → 2021-09-14 15:21 | Outpatient (CLI) | payer OTHER, MEDICAID, SELFPAY ==
[2020-09-25 10:47] VITALS: BMI 27.3
[2021-09-15 09:26] LABS: Varicella IgG Antibody 443 index (Immune >165)
== END ==
PROVIDERS: PCP Internal Medicine; Referring Provider Internal Medicine; Visit Provider Internal Medicine
DX: Z78.9 Other specified health status (principal)
CPT/HCPCS: 36415; 86787

== ENCOUNTER → 2022-06-10 09:06 | Outpatient (CLI) | payer OTHER, MEDICAID, SELFPAY ==
[2022-05-29 15:27] VITALS: BMI 27.3
--- NOTE | 2022-06-10 09:08 | DI.RAD.S_ITS ---
PROCEDURE: XR SHOULDER LT MIN 2V INDICATIONS: LEFT SHOULDER PAIN TECHNIQUE: 3 views of the shoulder were acquired. COMPARISON: None. FINDINGS: Bones: No fractures or dislocations. Mild to moderate acromioclavicular joint and glenohumeral joint osteoarthritic changes are seen with joint space narrowing, subchondral sclerosis and small marginal osteophyte formations. No suspicious bony lesions. Visualized ribs appear intact. Soft tissues: No suspicious soft tissue calcifications. IMPRESSION: No shoulder fracture or dislocation. 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 Dictated by: Leonidas Headley M.D. on 06/10/2022 at 11:58 Approved by: Leonidas Headley M.D. on 06/10/2022 at 12:03
== END ==
PROVIDERS: PCP Internal Medicine; Referring Provider Physical Medicine & Rehabilitation; Visit Provider Physical Medicine & Rehabilitation
DX: M25.512 Pain in left shoulder (principal); M19.012 Primary osteoarthritis, left shoulder
CPT/HCPCS: 73030

== ENCOUNTER → 2022-08-26 09:14 | Outpatient (CLI) | payer OTHER, MEDICAID, SELFPAY ==
[2022-05-29 15:27] VITALS: BMI 27.3
--- NOTE | 2022-08-26 09:45 | DI.MRI.S_ITS ---
PROCEDURE: MR SHOULDER LT WO CON INDICATIONS: CUFF TEAR PAIN TECHNIQUE: Noncontrast oblique coronal T2 fast spin echo with fat saturation, oblique sagittal T1 spin echo and T2 fast spin echo with fat saturation, axial T1 spin echo and T2 fast spin echo with fat saturation through the shoulder. COMPARISON: [facility], CR, XR SHOULDER LT MIN 2V, 06/10/2022, 9:21. FINDINGS: Image quality: Excellent. Rotator cuff: There is partial-thickness tear and associated tendinosis of the distal supraspinatus and infraspinatus tendon involving the footprint. There is moderate tendinosis of the subscapularis tendon without discrete tendon tear. Sagittal images demonstrate no rotator cuff muscle atrophy. Bones and bursae: No bone marrow contusions or fractures. Severe glenohumeral joint degeneration and mild acromioclavicular joint degeneration. The acromion demonstrates conventional anatomy, without an os acromiale. There is subcoracoid bursal fluid consistent with bursitis. There are intra-articular bodies within the subcoracoid bursa. Small glenohumeral joint effusion. Capsule and soft tissues: Degenerative tear of the anterior inferior labrum The long head of the biceps tendon demonstrates normal location and morphology. The rotator interval appears normal, without fibrosis. The coracohumeral ligament is normal in thickness. IMPRESSION: 1. Partial-thickness tear of the distal supraspinatus and infraspinatus tendons. 2. Moderate tendinosis of the subscapularis tendon. 3. Subcoracoid bursitis. There are multiple intra-articular bodies within subcoracoid bursa, suggesting osteochondromatosis. 4. Severe glenohumeral joint degeneration. 5. Degenerative labral tear involving the anterior inferior labrum. Dictated by: Chantale George M.D. on 08/26/2022 at 10:53 Approved by: Chantale George M.D. on 08/26/2022 at 11:02
== END ==
PROVIDERS: PCP Internal Medicine; Referring Provider Physical Medicine & Rehabilitation; Visit Provider Physical Medicine & Rehabilitation
DX: M19.012 Primary osteoarthritis, left shoulder (principal); M75.42 Impingement syndrome of left shoulder; M75.112 Incomplete rotator cuff tear or rupture of left shoulder, not specified as traumatic; M75.52 Bursitis of left shoulder; S43.492A Other sprain of left shoulder joint, initial encounter
CPT/HCPCS: 73221

== ENCOUNTER → 2023-08-29 10:35 | Outpatient (CLI) | payer OTHER, SELFPAY ==
[2023-08-04 15:27] VITALS: BMI 27.3
[2023-08-29 11:53] LABS: Add Manual Diff / Slide Review NO; Basophils Absolute Auto 0 /uL (0-100); Basophils Percent Auto 0.8 % (0-2); Eosinophils Absolute Auto 100 /uL (0-450); Eosinophils Percent Auto 1.7 % (2-4); Hematocrit 37.9 % (36-46); Hemoglobin 13.2 g/dL (12.0-16.0); Lymphocytes Absolute Auto 1400 /uL (1100-4500); Lymphocytes Percent Auto 36.1 % (25-40); Mean Corpuscular HGB Conc 34.7 % (30-36); Mean Corpuscular Hemoglobin 33.8 PG (26-34); Mean Corpuscular Volume 97.4 fL (80-100); Monocytes Absolute Auto 300 /uL (0-900); Monocytes Percent Auto 8.2 % (3-14); Neutrophils Absolute Auto 2100 /uL (1500-7000); Neutrophils Percent Auto 53.2 % (50-75); Platelet Count 253 X10^3/uL (150-400); Red Blood Cell Count 3.89 X10^6/uL (4.0-5.2); Red Cell Distribution Width 12.2 % (11.6-14.8); White Blood Cell Count 3.9 X10^3/uL (4.5-11.0)
[2023-08-29 12:32] LABS: Alanine Aminotransferase 20 IU/L (<35); Albumin 4.1 g/dL (3.5-5.0); Albumin Globulin Ratio 1.5 (1.0-2.8); Alkaline Phosphatase 88 U/L (38-126); Aspartate Aminotransferase 27 IU/L (14-36); BUN Creatinine Ratio 27.9 (6-22); Bilirubin Total 0.3 mg/dL (0.2-1.3); Blood Urea Nitrogen 17 mg/dL (7-17); Calcium 9.3 mg/dL (8.4-10.2); Carbon Dioxide 31 mmol/L (22-32); Chloride 104 mmol/L (98-107); Cholesterol 255 mg/dL (140-199); Estimated Glomerular Filt Rate > 60 mL/min (>60); Globulin 2.8 g/dL (1.7-4.1); Glucose 120 mg/dL (80-110); HDL Cholesterol 64 mg/dL (40-60); HEMOLYSIS < 15 (0-50); LDL Cholesterol Calculated 165 mg/dL (<100); Potassium 4.4 mmol/L (3.4-5.1); Sodium 139 mmol/L (137-145); Total Protein 6.9 g/dL (6.3-8.2); Triglycerides 131 mg/dL (35-150)
[2023-08-29 12:44] LABS: Free T4, Direct Thyroxine 0.61 ng/dL (0.78-2.19)
== END ==
PROVIDERS: PCP Internal Medicine; Referring Provider Internal Medicine; Visit Provider Internal Medicine
DX: L65.9 Nonscarring hair loss, unspecified (principal); I49.3 Ventricular premature depolarization; C43.9 Malignant melanoma of skin, unspecified; R63.4 Abnormal weight loss
CPT/HCPCS: 36415; 80053; 80061; 84439; 84443; 85025

== ENCOUNTER → 2025-01-04 11:21 | Outpatient (CLI) | payer BC, MEDICARE, SELFPAY ==
[2023-08-29 10:56] VITALS: BMI 27.3
[2025-01-04 11:55] LABS: Alanine Aminotransferase 25 IU/L (<35); Albumin 4.5 g/dL (3.5-5.0); Albumin Globulin Ratio 1.5 (1.0-2.8); Alkaline Phosphatase 70 U/L (38-126); Aspartate Aminotransferase 32 IU/L (14-36); BUN Creatinine Ratio 23.6 (6-22); Bilirubin Total 0.5 mg/dL (0.2-1.3); Blood Urea Nitrogen 17 mg/dL (7-17); Carbon Dioxide 29 mmol/L (22-32); Chloride 104 mmol/L (98-107); Cholesterol 269 mg/dL (140-199); Estimated Glomerular Filt Rate > 60 mL/min (>60); Glucose 117 mg/dL (80-110); HDL Cholesterol 73 mg/dL (40-60); HEMOLYSIS < 15 (0-50); LDL Cholesterol Calculated 161 mg/dL (<100); Potassium 4.1 mmol/L (3.4-5.1); Sodium 138 mmol/L (137-145); Total Protein 7.5 g/dL (6.3-8.2); Triglycerides 174 mg/dL (35-150)
[2025-01-04 12:12] LABS: Free T4, Direct Thyroxine 0.64 ng/dL (0.78-2.19)
[2025-01-04 12:26] LABS: Thyroid Stimulating Hormone 2.02 uIU/mL (0.47-4.68)
== END ==
PROVIDERS: PCP Internal Medicine; Referring Provider Internal Medicine; Visit Provider Internal Medicine
DX: I10 Essential (primary) hypertension (principal); F33.42 Major depressive disorder, recurrent, in full remission; K21.9 Gastro-esophageal reflux disease without esophagitis
CPT/HCPCS: 36415; 80053; 80061; 84439; 84443

== ENCOUNTER → 2025-02-02 15:01 | Outpatient (CLI) | payer BC, MEDICARE, SELFPAY ==
[2023-08-29 10:56] VITALS: BMI 27.3
--- NOTE | 2025-02-02 15:03 | DI.RAD.S_ITS ---
PROCEDURE: XR SHOULDER RT MIN 2V INDICATIONS: RIGHT SHOULDER PAIN TECHNIQUE: 3 views of the shoulder were acquired. COMPARISON: [facility], CR, XR SHOULDER LT MIN 2V, 06/10/2022, 9:21. FINDINGS: Diffuse osseous demineralization. No acute fracture or dislocation. Mild acromioclavicular osteoarthritis with heterotopic calcification of the superior joint capsule. Mild glenohumeral osteoarthritis with inferior glenoid remodeling. Visualized right hemithorax within normal limits. IMPRESSION: Mild glenohumeral and acromioclavicular osteoarthritis. Dictated by: Hernandez Donato M.D. on 02/02/2025 at 15:21 Approved by: Hernandez Donato M.D. on 02/02/2025 at 15:22
--- NOTE | 2025-02-02 15:03 | DI.RAD.S_ITS ---
PROCEDURE: XR SHOULDER LT MIN 2V INDICATIONS: LEFT SHOULDER PAIN TECHNIQUE: 3 views of the shoulder were acquired. COMPARISON: [facility], CR, XR SHOULDER RT MIN 2V, 02/02/2025, 14:07. [facility], CR, XR SHOULDER LT MIN 2V, 06/10/2022, 9:21. FINDINGS: Diffuse osseous demineralization. No acute fracture or dislocation. Mild glenohumeral osteoarthritis. Mild acromioclavicular osteoarthritis. Visualized left hemithorax within normal limits. IMPRESSION: Mild glenohumeral and acromioclavicular osteoarthritis. Dictated by: Hernandez Donato M.D. on 02/02/2025 at 15:23 Approved by: Hernandez Donato M.D. on 02/02/2025 at 15:23
== END ==
PROVIDERS: PCP Internal Medicine; Referring Provider Physical Medicine & Rehabilitation; Visit Provider Physical Medicine & Rehabilitation
DX: M19.012 Primary osteoarthritis, left shoulder (principal); M19.011 Primary osteoarthritis, right shoulder; M25.511 Pain in right shoulder
CPT/HCPCS: 73030

== ENCOUNTER → 2025-02-25 11:32 | Outpatient (CLI) | payer BC, MEDICARE, SELFPAY ==
[2023-08-29 10:56] VITALS: BMI 27.3
--- NOTE | 2025-02-25 11:34 | DI.RAD.S_ITS ---
PROCEDURE: XR HAND RT MIN 3V INDICATIONS: hand pain TECHNIQUE: 3 views of the hand(s) acquired. COMPARISON: None. FINDINGS: Bones: No fractures or dislocations. Carpal bones are normally aligned. No suspicious bony lesions. Soft tissues: No suspicious soft tissue calcifications. IMPRESSION: No acute bony abnormality. Dictated by: Hernandez Felder M.D. on 02/26/2025 at 0:00 Approved by: Hernandez Felder M.D. on 02/26/2025 at 0:03
== END ==
PROVIDERS: PCP Internal Medicine; Referring Provider Internal Medicine; Visit Provider Internal Medicine
DX: M79.641 Pain in right hand (principal)
CPT/HCPCS: 73130

== ENCOUNTER → 2025-09-06 15:44 | Outpatient (CLI) | payer BC, MEDICARE, SELFPAY ==
[2023-08-29 10:56] VITALS: BMI 27.3
--- NOTE | 2025-09-06 15:46 | DI.MG.S_ITS ---
MM screening mammo BI: 09/06/2025. BI-RADS: 1 CLINICAL: 65-year old female for bilateral screening mammogram. Tyrer-Cuzick lifetime risk of 15.3%. Current reported family history of breast cancer: mother. The patient has bilateral implants. PRIOR EXAMS Baseline. MAMMOGRAPHY TECHNIQUE: 2D and 3D (tomosynthesis) digital mammographic views obtained, with additional images as needed for full coverage. Current study was also evaluated with a Computer Aided Detection (CAD) system. DENSITY C. The breasts are heterogeneously dense, which may obscure small masses. MAMMOGRAPHY FINDINGS Bilateral: No suspicious mass, asymmetry, microcalcification, or other abnormality seen. IMPRESSION: * No evidence of malignancy. RECOMMENDATIONS Bilateral * Annual screening mammography. OVERALL ASSESSMENT CATEGORY BI-RADS-1: Negative. The [employer] recommends annual screening mammography beginning at age 40 for women with average risk of breast cancer. ELECTRONICALLY SIGNED: Francia Arriola M.D. on 09/07/2025 at 11:41:46 AM PT Interpreting Station ID: [id number]
== END ==
LOC: MAMMO 15:45
PROVIDERS: PCP Internal Medicine; Referring Provider Internal Medicine; Visit Provider Internal Medicine
DX: Z12.31 Encounter for screening mammogram for malignant neoplasm of breast (principal); R92.333 Mammographic heterogeneous density, bilateral breasts; Z80.3 Family history of malignant neoplasm of breast; Z98.82 Breast implant status
CPT/HCPCS: 77063; 77067